=== PATIENT | male | born 1955 | race American Indian/Alaskan Native ===

== ENCOUNTER 2021-09-01 16:25 | Inpatient (IN) | payer MEDICARE ==
--- NOTE | 2021-09-01 16:58 | Emergency Department Report ---
HPI - General Chief Complaint: Altered Mental Status Time Seen by Provider: 09/01/21 16:53 - HPI HPI: Patient brought from [facility] because of altered mental status for approximately the last 3 hours. The patient cannot provide any history because he is afflicted with dementia. EMS found the patient slightly hypertensive at 180/100. ED Past Medical Hx - Past Medical History Hx Hypertension: Yes Hx Diabetes: Yes Hx Renal Disease: Yes (Unsure when he had his last hemodialysis) Additional medical history: Dementia hypercholesterolemia - Family History Family history: other (Noncontributory, unable to obtain) ED Review of Systems ROS: Stated complaint: AMS Other details as noted in HPI Comment: Unobtainable due to pts medical conditions (Dementia) Physical Exam - Physical Exam Vital Signs: Vital Signs 09/01/21 16:43 Temperature 98.7 F Pulse Rate 58 L Respiratory 18 Rate Blood Pressure 180/109 [Left] O2 Sat by Pulse 98 Oximetry Physical Exam: Physical Exam: Constitutional: The patient is oriented only to person. No acute distress. No diaphoresis. HENT: Normocephalic. Pupils equal and reactive. No throat edema or erythema. Neck: No neck rigidity or tenderness. Cardiovascular: Heart sounds: No murmur. Normal rate and regular rhythm. Pulses: Intact distal pulses. Lungs: No wheezing or rales. Chest wall: No tenderness. Abdominal: No distension. No mass/pulsatile mass. No abdominal tenderness, guarding nor rebound. Musculoskeletal: Normal range of motion. No edema, No calf TTP. Skin: Warm and dry. Neurological: Alert and oriented only to person. Psychiatric: Mood and affect normal. He seems cognitively slow. He follows commands but does not respond to questions appropriately. ED Course Vital Signs 09/01/21 16:43 Temperature 98.7 F Pulse Rate 58 L Respiratory 18 Rate Blood Pressure 180/109 [Left] O2 Sat by Pulse 98 Oximetry - Reevaluation(s) Reevaluation #1: 09/01/21 18:49 EKG done at 1746 shows a rate of 51, bradycardia. The rhythm is sinus bradycardia. Prolonged. Interval with first-degree AV block. There are nonspecific repolarization abnormality diffusely in all leads. There is minimal ST segment elevation in the inferior leads not meeting STEMI criteria. The patient's creatinine is very elevated consistent with his ESRD. His troponin is elevated also at 0.1. The rest of his chemistries were within normal limits and his CT of the brain and chest x-ray are also normal. We will be admitting for altered mental status. Reevaluation #2: 09/01/21 20:08 The patient does not produce urine so cannot obtain a urine. His chest x-ray and CT of the brain were unremarkable. His creatinine was elevated at 11 consistent with his ESRD. His troponin was 0.14 consistent with renal accumulation but we do not have old values to compare with. We will admit the patient for altered mental status work-up. ED Medical Decision Making - Lab Data Result diagrams: 09/01/21 17:31 09/01/21 17:31 Critical care attestation.: If time is entered above; I have spent that time in minutes in the direct care of this critically ill patient, excluding procedure time. ED Disposition Clinical Impression: Altered mental status Disposition: 02 [facility] Is pt being admited?: Yes Does the pt Need Aspirin: No Condition: Stable Referrals: PRIMARY CARE [Primary Care Provider] - 3-5 Days
--- NOTE | 2021-09-01 17:36 | Cat Scan Report ---
CT HEAD WITHOUT CONTRAST INDICATION / CLINICAL INFORMATION: AMS. TECHNIQUE: All CT scans at this location are performed using CT dose reduction for ALARA by means of automated e xposure control. COMPARISON: None available. FINDINGS: HEMORRHAGE: No evidence of intracranial hemorrhage or extra-axial fluid collection. EXTRA-AXIAL SPACES: Cortical sulci and sylvian fissures are enlarged reflecting a degree of parenchym al volume loss which is greater than expected for the patient's age of 65 years. Basilar cisterns hav e an unremarkable appearance. VENTRICULAR SYSTEM: The third and lateral ventricles are enlarged reflecting a degree of parenchymal volume loss which is substantially greater than expected for age 65 years. CEREBRAL PARENCHYMA: Periv entricular and deep white matter lucency is observed. This is probably secondary to microvascular isc hemic change. There is no indication of recent infarction. Remote small deep infarctions are identifi ed in a bilateral gangliocapsular distribution. MIDLINE SHIFT OR HERNIATION: There is no mass effect. CEREBELLUM / BRAINSTEM: Brainstem has an unremarkable appearance. Age related cerebellar atrophy is n oted. MIDLINE STRUCTURES:Pituitary gland has an unremarkable appearance. No abnormalities are seen in the p ineal region. INTRACRANIAL VESSELS:Calcified atherosclerotic plaque is present along the course of the cavernous se gments of both internal carotid arteries. Similar findings are seen at the distal vertebral arteries. CRANIOCERVICAL JUNCTION:No significant abnormality. ORBITS: visualized portions of the orbits have an unremarkable appearance. SOFT TISSUES of HEAD: No significant abnormality. CALVARIUM: Evaluation of bone windows reveals no abnormalities. PARANASAL SINUSES / MASTOID AIR CELLS: Paranasal sinuses are free from inflammatory mucosal disease. Mastoid air cells are normally pneumatized. ADDITIONAL FINDINGS: None. IMPRESSION: 1. Moderate central greater than cortical parenchymal atrophy greater than expected for age 65 years. 2. Moderate microvascular ischemic change and multifocal bilateral gangliocapsular remote small deep infarctions. 3. No acute intracranial abnormality. Signer Name: Jose Angel Ross MD Signed: 09/01/2021 5:32 PM Workstation Name: [id number]
--- NOTE | 2021-09-01 17:48 | XRay Report ---
CHEST 1 VIEW 09/01/2021 5:28 PM INDICATION / CLINICAL INFORMATION: Chest Pain. COMPARISON: None available. FINDINGS: SUPPORT DEVICES: None. HEART / MEDIASTINUM: There is mild generalized cardiomegaly. Pulmonary vasculature is probably normal for technique. The aorta is normal in caliber. LUNGS / PLEURA: No significant pulmonary or pleural abnormality. No pneumothorax. ADDITIONAL FINDINGS: No significant additional findings. IMPRESSION: No acute findings. Signer Name: David Mejia MD Signed: 09/01/2021 5:43 PM Workstation Name: [email or web address]
[2021-09-01 18:00] LABS: Basophils # (Auto) 0.1 K/mm3 (0.0-0.1); Basophils % (Auto) 0.6 % (0.0-1.8); Eosinophils # (Auto) 0.1 K/mm3 (0.0-0.4); Eosinophils % (Auto) 1.1 % (0.0-4.3); Hematocrit 31.1 % (35.5-45.6); Hemoglobin 10.4 gm/dl (11.8-15.2); Lymphocytes # (Auto) 1.4 K/mm3 (1.2-5.4); Lymphocytes % (Auto) 16.8 % (13.4-35.0); Mean Corpuscular HGB Conc 33 % (32-34); Mean Corpuscular Volume 85 fl (84-94); Monocytes # (Auto) 0.7 K/mm3 (0.0-0.8); Monocytes % (Auto) 8.2 % (0.0-7.3); Platelet Count 132 K/mm3 (140-440); Red Blood Count 3.67 M/mm3 (3.65-5.03); Red Cell Distribution Width 16.3 % (13.2-15.2)
[2021-09-01 18:19] LABS: Albumin 4.2 g/dL (3.9-5); Calcium 10.5 mg/dL (8.4-10.2)
[2021-09-01 19:55] LABS: Chol/HDL Ratio 1.91 %
--- NOTE | 2021-09-01 20:08 | History and Physical Report ---
History of Present Illness Chief complaint: He is confused and does not look right History of present illness: 65 [facility] Resident with Vascular Dementia, Cerebral Atherosclerosis, ESRD on HD, HTN, DM, Obesity, HLD presents to ED for evaluation. Patient has diminished cognition and is on a provide history. Patient history taken from EMS staff, ED staff, as well as [facility] staff. As per staff the patient was found to have increased confusion and "not acting like himself". EMS was notified and upon arrival the patient was found to be in distress and subsequently transported to [facility] for further care and evaluation of the aforementioned symptoms. The patient was seen and ev aluated in the emergency department. All lab and imaging studies reviewed. Patient found to have clinical symptoms consistent with CHF decompensation, end- stage renal disease, fluid overload, as well as type II NSTEMI. Patient admitted to [facility] and initiated on CHF protocol. Cardiology team consulted in ED. Nephrology team consulted in ED for urgent dialysis. No reports of fever, chills, chest pain, hypertension, productive cough, skin rash, recent contact, known exposure to COVID-19. No prior admission for review. No medication listed at time of admission for reconciliation. Advanced care planning conducted in ED. Past History Past Medical History: diabetes, ESRD, hypertension, other (See HPI) Past Surgical History: Other (Dialysis access) Social history: single. denies: smoking, alcohol abuse, prescription drug abuse Family history: diabetes, hypertension Medications and Allergies Allergies Allergy/AdvReac Type Severity Reaction Status Date / Time No Known Allergies Allergy Unverified 09/01/21 16:53 Review of Systems ROS unobtainable: due to mental status Exam - Constitutional Vitals: Temp Pulse Resp BP Pulse Ox 98.7 F 58 L 18 180/109 99 09/01/21 16:43 09/01/21 16:43 09/01/21 16:43 09/01/21 16:43 09/01/21 17:54 General appearance: Present: mild distress, obese - EENT Eyes: Present: PERRL ENT: hearing intact, clear oral mucosa - Neck Neck: Present: supple, masses or JVD - Respiratory Respiratory effort: labored Respiratory: bilateral: diminished, rhonchi - Cardiovascular Heart Sounds: Present: S1 & S2. Absent: rub, click - Extremities Extremity abnormal: edema Peripheral Pulses: within normal limits - Abdominal General gastrointestinal: Present: soft, non-tender, non-distended, normal bowel sounds Male genitourinary: Present: normal - Integumentary Integumentary: Present: clear, warm, dry - Musculoskeletal Musculoskeletal: generalized weakness - Psychiatric Psychiatric: no appropriate mood/affect, no intact judgment & insight, no memory intact - Neurologic Neurologic: CNII-XII intact (Hospitalist) HEART Score - HEART Score Troponin: Troponin T 0.140 ng/mL (0.00-0.029) H* 09/01/21 17:31 Results - Labs CBC & Chem 7: 09/01/21 17:31 09/01/21 17:31 Labs: Abnormal lab results 09/01/21 09/01/21 Range/Units 17:31 17:31 Hgb 10.4 L (11.8-15.2) gm/dl Hct 31.1 L (35.5-45.6) % RDW 16.3 H (13.2-15.2) % Plt Count 132 L (140-440) K/mm3 Sanders % (Auto) 8.2 H (0.0-7.3) % Seg Neutrophils % 73.3 H (40.0-70.0) % BUN 45 H (9-20) mg/dL Creatinine 11.1 H (0.8-1.3) mg/dL Glucose 116 H (75-100) mg/dL Calcium 10.5 H (8.4-10.2) mg/dL Troponin T 0.140 H* (0.00-0.029) ng/mL NT-Pro-B Natriuret Pep 6719 H (0-900) pg/mL LDL Cholesterol Direct 40 L (50-130) mg/dL Assessment and Plan - Patient Problems (1) CHF (congestive heart failure) Current Visit: Yes Status: Acute Qualifiers: Heart failure chronicity: acute on chronic Plan to address problem: CHF protocol: Strict I/O, monitor urine output every shift, daily weight, a fterload reduction, blood pressure control, supplemental oxygen, pulse oximetry, diuretic therapy, echocardiogram ordered and pending at time of admission, cardiology team consulted, thyroid panel, magnesium level.. (2) End stage renal disease Current Visit: Yes Status: Acute Plan to address problem: Strict I/O, monitor urine output every shift, avoid nephrotoxic agents, dialysis as per renal team. (3) Fluid overload Current Visit: Yes Status: Acute Qualifiers: Hypervolemia type: unspecified Qualified Code(s): E87.70 - Fluid overload, unspecified Plan to address problem: Dialysis as per renal team, monitor urine output every shift, monitor fluid balance. (4) Vascular dementia Current Visit: Yes Status: Acute Qualifiers: Dementia behavioral disturbance: without behavioral disturbance Qualified Code(s): F01.50 - Vascular dementia without behavioral disturbance Plan to address problem: Verbal prompting, verbal redirection, benzodiazepine therapy as clinically indicated. (5) Cerebral atherosclerosis Current Visit: Yes Status: Acute Plan to address problem: Risk factor reduction, supportive care. Antiplatelet therapy as clinically indicated. (6) Obesity hypoventilation syndrome Current Visit: Yes Status: Acute Plan to address problem: Balanced diet, increase physical activity discharge, outpatient pulmonary follow-up for sleep study. (7) Diabetes mellitus Current Visit: Yes Status: Acute Plan to address problem: Consistent carbohydrate diet, Accu-Chek, hypoglycemia protocol, insulin pr otocol. (8) Metabolic syndrome Current Visit: Yes Status: Acute Plan to address problem: Risk factor reduction, supportive care, (9) Hyperlipidemia Current Visit: Yes Status: Acute Qualifiers: Hyperlipidemia type: mixed hyperlipidemia Qualified Code(s): E78.2 - Mixed hyperlipidemia Plan to address problem: Statin therapy as clinically indicated (10) DVT prophylaxis Current Visit: Yes Status: Acute Plan to address problem: SCD to bilateral lower extremities while in bed, prophylactic anticoagulation (11) Advance care planning Current Visit: Yes Status: Acute Plan to address problem: Disease education conducted, care plan discussed, diagnoses discussed, prognosis discussed, patient is full code. +30 minutes.
[2021-09-01] MEDS ORDERED: ACETAMINOPHEN 325 MG TAB PO PRN (20:38)
[2021-09-01] MEDS ORDERED: ALBUTEROL 2.5 MG/3 ML NEBU IH PRN (20:38)
[2021-09-01] MEDS ORDERED: HYDROmorphone 1 MG/1 ML INJ IV PRN (20:38)
[2021-09-01] MEDS ORDERED: oxyCODONE /ACETAMINOPHEN 5-325MG TAB PO PRN (20:38)
[2021-09-01] MEDS ORDERED: SODIUM CHLORIDE 0.9% 100 ML IV PRN (21:08)
--- NOTE | 2021-09-01 21:20 | Event Note ---
Date: 09/01/[address] Singer re: management of ESRD. Patient w/ fluid overload and requires HD tonight. STAT HD orders entered. Attempted to reach HD RN jury consultant - no answer. Notified household appliance installer, Sophie, who will notify HD RN.
[2021-09-01 21:44] LABS: Free T4 (Free Thyroxine) 1.41 ng/dL (0.76-1.46)
[2021-09-02 01:03] LABS: Hepatitis B Surface Antigen Non-Reactive (Negative); Hepatitis C Virus Antibody Non-Reactive (NonReactive)
[2021-09-02] MEDS: HEPARIN 5,000 UNIT/1 ML VIAL SUB-Q SCH ×3 (02:56→22:41)
[2021-09-02 03:39] LABS: Bilirubin,Urine NEG (Negative); Blood,Urine SM (Negative); Color,Urine Straw (Yellow); Urobilinogen,Urine < 2.0 mg/dL (<2.0)
[2021-09-02 05:45] LABS: Calcium 9.4 mg/dL (8.4-10.2)
[2021-09-02] MEDS: FUROSEMIDE 20 MG/2 ML INJ IV SCH ×2 (06:27→18:06)
--- NOTE | 2021-09-02 09:53 | Consultation ---
History of Present Illness - Reason for Consult Consult date: 09/02/21 end stage renal disease - History of Present Illness History obtained from medical records. Mr. Mi is a 65yo w/ ESRD, hypertension, DM who presented to the ED from SNF with change in mental status. History taken from EMS staff, ED staff, as well as [facility] facility staff. As per staff the patient was found to have increased confusion and "not acting like himself". EMS was notified and upon arrival the patient was found to be in distress and subsequently transported to [facility] for further care and evaluation. In the ED, patient was noted to be in fluid overload. He was admitted to [facility] and initiated on CHF protocol. Cardiology team consulted in ED. Nephrology team consulted for urgent dialysis. He is s/p dialysis overnight. Past History Past Medical History: diabetes, ESRD, hypertension, other (See HPI) Past Surgical History: Other (Dialysis access) Social history: single. denies: smoking, alcohol abuse, prescription drug abuse Family history: diabetes, hypertension Medications and Allergies Allergies Allergy/AdvReac Type Severity Reaction Status Date / Time lisinopril Allergy Unknown Verified 09/02/21 08:06 Home Medications Medication Instructions Recorded Confirmed Last Taken Type Acetaminophen [Aphen] 325 mg PO PRN PRN 09/03/21 09/03/21 Unknown History Amlodipine Besylate 10 mg PO DAILY 09/03/21 09/03/21 08/31/21 History Aspirin [Yolo Aspirin EC] 81 mg PO DAILY 09/03/21 09/03/21 08/31/21 History Calcium Acetate 667 mg PO TID 09/03/21 09/03/21 08/31/21 History Cholecalciferol (Vitamin D3) 5,000 units PO QWEEK 09/03/21 09/03/21 Unknown History Cinacalcet HCl [Sensipar] 60 mg PO DAILY 09/03/21 09/03/21 08/31/21 History Famotidine [Pepcid] 20 mg PO BID 09/03/21 09/03/21 08/31/21 History Finasteride [Proscar] 5 mg PO QDAY 09/03/21 09/03/21 08/31/21 History Finasteride [Proscar] 5 mg PO QDAY 09/03/21 09/03/21 08/31/21 History Hydralazine HCl 100 mg PO TID 09/03/21 09/03/21 08/31/21 History Insulin Aspart (Nf) [Novolog 100 unit SQ TID 09/03/21 09/03/21 Unknown History Flexpen] Isosorbide Mononitrate [Isosorbide 60 mg PO DAILY 09/03/21 09/03/21 08/31/21 History Mononitrate ER] Latanoprost 0.005% [Xalatan 0.005%] 1 drop OP QPM 09/03/21 09/03/21 08/31/21 History Renal Vitamin Tablet 1 tab PO DAILY 09/03/21 09/03/21 Unknown History Sevelamer Carbonate [Renvela] 2.4 gm PO TIDWM 09/03/21 09/03/21 08/31/21 History Simvastatin 20 mg PO HS 09/03/21 09/03/21 08/31/21 History Tamsulosin [Flomax] 0.4 mg PO QDAY 09/03/21 09/03/21 08/31/21 History Torsemide [Demadex] 100 mg PO QDAY 09/03/21 09/03/21 08/31/21 History allopurinoL [Zyloprim] 100 mg PO Q48HR 09/03/21 09/03/21 08/31/21 History Active Meds: Active Medications Acetaminophen (Acetaminophen 325 Mg Tab) 650 mg PO Q6H PRN PRN Reason: Pain MILD(1-3)/Fever >100.5/VEGAS Albuterol (Albuterol 2.5 Mg/3 Ml Nebu) 2.5 mg IH Q3HRT PRN PRN Reason: Shortness Of Breath Furosemide (Furosemide 20 Mg/2 Ml Inj) 20 mg IV BID@0600,1800 [facility] Last Admin: 09/02/21 06:27 Dose: 20 mg Heparin Sodium (Porcine) (Heparin 5,000 Unit/1 Ml Vial) 5,000 unit SUB-Q Q12HR [facility] Last Admin: 09/02/21 02:56 Dose: 5,000 unit Hydromorphone HCl (Hydromorphone 1 Mg/1 Ml Inj) 0.5 mg IV Q23H PRN PRN Reason: Pain , Severe (7-10) Sodium Chloride (Nacl 0.9%) 100 mls @ 999 mls/hr IV GHAZAL PRN PRN Reason: Hypotension Oxycodone/Acetaminophen (Oxycodone /Acetaminophen 5-325mg Tab) 1 tab PO Q16H PRN PRN Reason: Pain, Moderate (4-6) Sodium Chloride (Sodium Chloride 0.9% 10 Ml Flush Syringe) 10 ml IV BID [facility] Last Admin: 09/02/21 02:56 Dose: 10 ml Sodium Chloride (Sodium Chloride 0.9% 10 Ml Flush Syringe) 10 ml IV PRN PRN PRN Reason: LINE FLUSH Review of Systems ROS unobtainable: due to mental status Exam - Vital Signs Vital signs: Vital Signs Temp Pulse Resp BP Pulse Ox 98.7 F 58 L 18 180/109 98 09/01/21 16:43 09/01/21 16:43 09/01/21 16:43 09/01/21 16:43 09/01/21 16:43 - General Appearance General appearance: well-developed, well-nourished Respiratory: Decreased Breath Sounds Heart: regular, S1S2 Gastrointestinal: Present: normal. Absent: tenderness, distended Integumentary: warm and dry Psychiatric: cooperative Results - Lab Results 09/03/21 05:09 09/03/21 05:09 Most recent lab results Calcium 9.4 mg/dL (8.4-10.2) 09/02/21 04:33 Magnesium 2.20 mg/dL (1.7-2.3) 09/01/21 20:48 Assessment and Plan Impression: * End stage renal disease * Acute encephalopathy * Bradycardia * Congestive heart failure * Hypertension * Anemia secondary to ESRD * Secondary hyperparathyroidism Plan: * Patient is s/p dialysis overnight * No acute need for HD today * Will plan for HD tomorrow - continue MWF dialysis * UF as tolerated * Cardiology and Neuro consultation pending * Epogen TIW prn * Renal/HD diet
--- NOTE | 2021-09-02 11:44 | Consultation ---
History of Present Illness Consult date: 09/02/21 Reason for Consult: Change in mentation,ESRD on Hemodialysis History of present illness: He is confused History of present illness: 65 [facility] Res[facility] with Vascular Dementia, Cerebral Atherosclerosis, ESRD on HD, HTN, DM, Obesity, HLD presents to ED for evaluation. Patient has diminished cognition and is on a provide history. Patient history taken from EMS staff, ED staff, as well as residential facility staff. As per staff the patient was found to have increased confusion and "not acting like himself". EMS was notified and upon arrival the patient was found to be in distress and subsequently transported to [facility] for further care and evaluation of the aforementioned symptoms. The patient was seen and evaluated in the emergency department. All lab and imaging studies reviewed. Patient found to have clinical symptoms consistent with CHF decompensation, end-stage renal disease, fluid overload, as well as type II NSTEMI. Patient admitted to [facility] and initiated on CHF protocol. Cardiology team consulted in ED. Nephrology team consulted in ED for urgent dialysis. No reports of fever, chills, chest pain, hypertension, productive cough, skin rash, recent contact, known exposure to COVID-19. No prior admission for review. No medication listed at time of admission for reconciliation. Advanced care planning conducted in ED. neurology consulted for evaluation of confusion Ct brain is remarkable for diffuse atrophy, and BG lacunar infarct bilateral TSH#0,095 Troponin#0.140 LDL#40 Past History Past Medical History: diabetes, ESRD, hypertension, other (See HPI) Past Surgical History: Other (Dialysis access) Social history: single. denies: smoking, alcohol abuse, prescription drug abuse Family history: diabetes, hypertension Medications and Allergies Allergies Allergy/AdvReac Type Severity Reaction Status Date / Time No Known Allergies Allergy Unverified 09/01/21 16:53 Review of Systems ROS unobtainable: due to mental status Past History Past Medical History: diabetes, ESRD, hypertension, other (See HPI) Past Surgical History: Other (Dialysis access) Social history: single. denies: smoking, alcohol abuse, prescription drug abuse Family history: diabetes, hypertension Medications and Allergies Allergies Allergy/AdvReac Type Severity Reaction Status Date / Time lisinopril Allergy Unknown Verified 09/02/21 08:06 Active Meds: Active Medications Acetaminophen (Acetaminophen 325 Mg Tab) 650 mg PO Q6H PRN PRN Reason: Pain MILD(1-3)/Fever >100.5/VEGAS Albuterol (Albuterol 2.5 Mg/3 Ml Nebu) 2.5 mg IH Q3HRT PRN PRN Reason: Shortness Of Breath Furosemide (Furosemide 20 Mg/2 Ml Inj) 20 mg IV BID@0600,1800 [facility] Last Admin: 09/02/21 06:27 Dose: 20 mg Heparin Sodium (Porcine) (Heparin 5,000 Unit/1 Ml Vial) 5,000 unit SUB-Q Q12HR [facility] Last Admin: 09/02/21 10:30 Dose: 5,000 unit Hydromorphone HCl (Hydromorphone 1 Mg/1 Ml Inj) 0.5 mg IV Q23H PRN PRN Reason: Pain , Severe (7-10) Sodium Chloride (Nacl 0.9%) 100 mls @ 999 mls/hr IV GHAZAL PRN PRN Reason: Hypotension Oxycodone/Acetaminophen (Oxycodone /Acetaminophen 5-325mg Tab) 1 tab PO Q16H PRN PRN Reason: Pain, Moderate (4-6) Sodium Chloride (Sodium Chloride 0.9% 10 Ml Flush Syringe) 10 ml IV BID [facility] Last Admin: 09/02/21 10:31 Dose: 10 ml Sodium Chloride (Sodium Chloride 0.9% 10 Ml Flush Syringe) 10 ml IV PRN PRN PRN Reason: LINE FLUSH Physical Examination - Vital Signs Vital Signs: Vital Signs Temp Pulse Resp BP Pulse Ox 98.7 F 58 L 18 180/109 98 09/01/21 16:43 09/01/21 16:43 09/01/21 16:43 09/01/21 16:43 09/01/21 16:43 - Constitutional General appearance: comfortable - EENT EENT: Present: PERRL, mucous membranes moist - Respiratory Respiratory: Present: chest non-tender, lungs clear, rhonchi - Cardiovascular Cardiovascular: Present: regular rate, normal S1, normal S2 Extremities: Present: no clubbing, cyanosis, non-pitting edema - Gastrointestinal Gastrointestinal: Present: normoactive bowel sounds - Integumentary Integumentary: Present: normal - Neurologic Cranial nerve examination: PERRL, EOMI, other (lazy 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 ,,not see objects ,unable to count fingers) Results - Laboratory Findings CBC and BMP: 09/01/21 17:31 09/02/21 04:33 Abnormal Lab Findings: Abnormal Labs 09/01/21 09/01/21 09/01/21 17:31 17:31 20:48 Hgb 10.4 L Hct 31.1 L RDW 16.3 H Plt Count 132 L Hendry % (Auto) 8.2 H Seg Neutrophils % 73.3 H BUN 45 H Creatinine 11.1 H Glucose 116 H Calcium 10.5 H Troponin T 0.140 H* NT-Pro-B Natriuret Pep 6719 H LDL Cholesterol Direct 40 L TSH 0.095 L Urine pH 09/02/21 09/02/21 03:12 04:33 Hgb Hct RDW Plt Count Hendry % (Auto) Seg Neutrophils % BUN 21 H Creatinine 6.8 H Glucose Calcium Troponin T NT-Pro-B Natriuret Pep LDL Cholesterol Direct TSH Urine pH 9.0 H Assessment and Plan Assessment and Plan - Patient Problems #Confusion/ dementia -possible change in mentatl status as per record -pt. today is alert interactive -he is with significant underlying dementia -CT brain is remarkable for advanced atrophy, and bilateral BG infarct - findings is suggestive of multiinfarct dementia -? legally blind -Maintain ASA and Lipitor # slight left side weakness -possibly remote -Consider MRI Brain if possible -US acrotid -Echo -A1C,LDL -maintain ASA and Lipitor # CHF (congestive heart failure) -CHF protocol: Strict I/O, monitor urine output every shift, daily weight, afterload reduction, blood pressure control, supplemental oxygen, pulse oximetry, diuretic therapy, echocardiogram ordered and pending at time of admission, cardiology team consulted, thyroid panel, magnesium level.. # End stage renal disease -Strict I/O, monitor urine output every shift, avoid nephrotoxic agents, dialysis as per renal team. # Fluid overload -Dialysis as per renal team, monitor urine output every shift, monitor fluid balance. # Obesity hypoventilation syndrome -Balanced diet, increase physical activity discharge, outpatient pulmonary follow-up for sleep study. # Diabetes mellitus -Consistent carbohydrate diet, Accu-Chek, hypoglycemia protocol, insulin protocol. # Hyperlipidemia -Statin therapy as clinically indicated -LDL#40 # DVT prophylaxis -SCD to bilateral lower extremities while in bed, prophylactic anticoagulation # Advance care planning - patient is full code.
--- NOTE | 2021-09-02 12:20 | Consultation ---
History of Present Illness Consult date: 09/02/21 Requesting physician: COSME NORTON Consult reason: congestive heart failure History of present illness: Chief complaint: Altered mental status Mr. Mi is a 65-year-old -[place] male who was admitted from the emergency room overnight with altered mental status. [facility] is a [facility] resident and according to staff he was brought via EMS for 3 hours of AMS. Patient has significant past medical history of dementia, end-stage renal disease on dialysis, hypertension, diabetes, and hyperlipidemia. HPI obtained from review of records, as patient is unable to provide information at this time. Upon arrival to the emergency room, he was noted to be hypertensive at 180/100. Subsequent work-up found the patient to be bradycardic, with elevated BNP and troponin of 0.140. CT head revealed no acute intracranial abnormality. Chest x-ray revealed mild generalized cardiomegaly with no significant addition al findings. This patient is unknown to our practice. Cardiology consulted for congestive heart failure. Past History Past Medical History: diabetes, ESRD, hypertension, other (See HPI) Past Surgical History: Other (Dialysis access) Social history: single. denies: smoking, alcohol abuse, prescription drug abuse Family history: diabetes, hypertension Medications and Allergies Allergies Allergy/AdvReac Type Severity Reaction Status Date / Time lisinopril Allergy Unknown Verified 09/02/21 08:06 Active Meds: Active Medications Acetaminophen (Acetaminophen 325 Mg Tab) 650 mg PO Q6H PRN PRN Reason: Pain MILD(1-3)/Fever >100.5/VEGAS Albuterol (Albuterol 2.5 Mg/3 Ml Nebu) 2.5 mg IH Q3HRT PRN PRN Reason: Shortness Of Breath Furosemide (Furosemide 20 Mg/2 Ml Inj) 20 mg IV BID@0600,1800 [facility] Last Admin: 09/02/21 06:27 Dose: 20 mg Heparin Sodium (Porcine) (Heparin 5,000 Unit/1 Ml Vial) 5,000 unit SUB-Q Q12HR [facility] Last Admin: 09/02/21 10:30 Dose: 5,000 unit Hydromorphone HCl (Hydromorphone 1 Mg/1 Ml Inj) 0.5 mg IV Q23H PRN PRN Reason: Pain , Severe (7-10) Sodium Chloride (Nacl 0.9%) 100 mls @ 999 mls/hr IV GHAZAL PRN PRN Reason: Hypotension Oxycodone/Acetaminophen (Oxycodone /Acetaminophen 5-325mg Tab) 1 tab PO Q16H PRN PRN Reason: Pain, Moderate (4-6) Sodium Chloride (Sodium Chloride 0.9% 10 Ml Flush Syringe) 10 ml IV BID PAULINA Last Admin: 09/02/21 10:31 Dose: 10 ml Sodium Chloride (Sodium Chloride 0.9% 10 Ml Flush Syringe) 10 ml IV PRN PRN PRN Reason: LINE FLUSH Review of Systems ROS unobtainable: due to mental status Physical Examination Vital Signs Temp Pulse Resp BP Pulse Ox 98.7 F 58 L 18 180/109 98 09/01/21 16:43 09/01/21 16:43 09/01/21 16:43 09/01/21 16:43 09/01/21 16:43 General appearance: no acute distress HEENT: Positive: Normocephaly Neck: Positive: trachea midline Cardiac: Positive: S1/S2, Bradycardia Lungs: Positive: clear to auscultation Neuro: Positive: Other (A&O x 1; disoriented. arousable. ) Abdomen: Positive: Soft, Active Bowel Sounds Male genitourinary: Positive: deferred Skin: Negative: Rash Extremities: Present: upper extr. pulses (2+), lower extr. pulses (1+). Absent: edema Results 09/01/21 17:31 09/02/21 04:33 Cardiac Enzymes 09/01/21 Range/Units 17:31 AST 14 (5-40) units/L Lipids 09/01/21 Range/Units 17:31 Triglycerides 82 (2-149) mg/dL Cholesterol 107 (50-199) mg/dL HDL Cholesterol 56 (40-59) mg/dL Cholesterol/HDL Ratio 1.91 % CBC 09/01/21 Range/Units 17:31 WBC 8.4 (4.5-11.0) K/mm3 RBC 3.67 (3.65-5.03) M/mm3 Hgb 10.4 L (11.8-15.2) gm/dl Hct 31.1 L (35.5-45.6) % Plt Count 132 L (140-440) K/mm3 Lymph # (Auto) 1.4 (1.2-5.4) K/mm3 [place] # (Auto) 0.7 (0.0-0.8) K/mm3 Eos # (Auto) 0.1 (0.0-0.4) K/mm3 Baso # (Auto) 0.1 (0.0-0.1) K/mm3 Comprehensive Metabolic Panel 09/01/21 09/02/21 Range/Units 17:31 04:33 Sodium 143 141 (137-145) mmol/L Potassium 4.6 4.0 (3.6-5.0) mmol/L Chloride 100.8 100.2 (98-107) mmol/L Carbon Dioxide 24 28 (22-30) mmol/L BUN 45 H 21 H (9-20) mg/dL Creatinine 11.1 H 6.8 H (0.8-1.3) mg/dL Glucose 116 H 84 (75-100) mg/dL Calcium 10.5 H 9.4 (8.4-10.2) mg/dL AST 14 (5-40) units/L ALT 12 (7-56) units/L Alkaline Phosphatase 70 (35-129) units/L Total Protein 7.7 (6.3-8.2) g/dL Albumin 4.2 (3.9-5) g/dL - Imaging and Cardiology Echo: pending EKG: pending EKG interpretations - Telemetry EKG Rhythm: 3rd Degree HB Assessment and Plan Assessment Altered mental status-neurology following End-stage renal disease(on HD) Bradycardia- EP consult placed NSTEMI Elevated BNP History of heart failure (unknown EF) Cardiographics EKG- Sinus Diego Echocardiogram-pending Recommendations/plan: -Telemetry revealed sinus bradycardia 40s to 50s with AV disassociation, possibly complete heart block with escape beats. Patient asymptomatic and hemodynamically stable. Electrolytes are acceptable. Patient is on no AV blocking medications. -EP consult has been placed -Initial troponin slightly elevated at 0.140. Cont to trend troponin x2 -Given patient's current mental status, we will defer ischemic evaluation at this time. -Despite elevated BNP, patient does not show overt signs of acute heart failure. Echocardiogram is pending. -Continue Lasix for now. -No beta-jcarlos due to bradycardia -No RODOLFO/ARB/ARNI in the setting of renal failure & allergy to lisinopril -Volume management per nephrology/HD Thank you for this consultation, we will follow along. Patient seen in conjunction with Dr. Giles who agrees with the assessment and management of this patient. - Patient Problems (1) NSTEMI (non-ST elevated myocardial infarction) Current Visit: Yes Status: Acute (2) Bradycardia Current Visit: Yes Status: Acute (3) Altered mental status Current Visit: Yes Status: Acute (4) Diabetes mellitus Current Visit: Yes Status: Acute (5) End stage renal disease Current Visit: Yes Status: Acute (6) Hyperlipidemia Current Visit: Yes Status: Acute Qualifiers: Hyperlipidemia type: mixed hyperlipidemia Qualified Code(s): E78.2 - Mixed hyperlipidemia (7) Vascular dementia Current Visit: Yes Status: Acute Qualifiers: Dementia behavioral disturbance: without behavioral disturbance Qualified Code(s): F01.50 - Vascular dementia without behavioral disturbance
--- NOTE | 2021-09-02 13:28 | Progress Note ---
Assessment and Plan Assessment and plan: 65 [facility] Res[facility] with Vascular Dementia, Cerebral Atherosclerosis, ESRD on HD, HTN, DM, Obesity, HLD presents to ED for evaluation. Patient has diminished cognition and is on a provide history. Patient history taken from EMS staff, ED staff, as well as halfway facility staff. As per staff the patient was found to have increased confusion and "not acting like himself". EMS was notified and upon arrival the patient was found to be in distress and subsequently transported to [facility] for further care and evaluation of the aforementioned symptoms. The patient was seen and evaluated in the emergency department. All lab and imaging studies reviewed. Patient found to have clinical symptoms consistent with CHF decompensation, end- stage renal disease, fluid overload, as well as type II NSTEMI. Patient admitted to [facility] and initiated on CHF protocol. Cardiology team consulted in ED. Nephrology team consulted in ED for urgent dialysis. No reports of fever, chills, chest pain, hypertension, productive cough, skin rash, recent contact, known exposure to COVID-19. No prior admission for review. No medication listed at time of admission for reconciliation. Advanced care planning conducted in ED. Patient undergoing dialysis today. Still with remarkable confusion continues to repeat his name when asked date of . CT of the brain was unremarkable. Neurology evaluated the patient and documented possible lacunar infarct bilateral. Patient being seen by vacuum tester cans he became bradycardic. EKG- Sinus Diego Echocardiogram-pending Cardiology work up ongoing evaluating for possible complete HB with escape beats. (1) CHF (congestive heart failure) Current Visit: Yes Status: Acute Qualifiers: Heart failure chronicity: acute on chronic Plan to address problem: CHF protocol: Strict I/O, monitor urine output every shift, daily weight, afterload reduction, blood pressure control, supplemental oxygen, pulse oximetry, diuretic therapy, echocardiogram ordered and pending at time of admission, cardiology team consulted, thyroid panel, magnesium level.. -No beta-jcarlos due to bradycardia -No RODOLFO/ARB/ARNI in the setting of renal failure & allergy to lisinopril (2) End stage renal disease Current Visit: Yes Status: Acute Plan to address problem: Strict I/O, monitor urine output every shift, avoid nephrotoxic agents, dialysis as per renal team. (3) Fluid overload Current Visit: Yes Status: Acute Qualifiers: Hypervolemia type: unspecified Qualified Code(s): E87.70 - Fluid overload, unspecified Plan to address problem: Dialysis as per renal team, monitor urine output every shift, monitor fluid balance. (4) Vascular dementia Current Visit: Yes Status: Acute Qualifiers: Dementia behavioral disturbance: without behavioral disturbance Qualified Code(s): F01.50 - Vascular dementia without behavioral disturbance Plan to address problem: Verbal prompting, verbal redirection, benzodiazepine therapy as clinically indicated. (5) Cerebral atherosclerosis Current Visit: Yes Status: Acute Plan to address problem: Risk factor reduction, supportive care. Antiplatelet therapy as clinically indicated. (6) Obesity hypoventilation syndrome Current Visit: Yes Status: Acute Plan to address problem: Balanced diet, increase physical activity discharge, outpatient pulmonary follow-up for sleep study. (7) Diabetes mellitus Current Visit: Yes Status: Acute Plan to address problem: Consistent carbohydrate diet, Accu-Chek, hypoglycemia protocol, insulin protocol. (8) Metabolic syndrome Current Visit: Yes Status: Acute Plan to address problem: Risk factor reduction, supportive care, (9) Bradycardia Current Visit: Yes Status: Acute (10) Hyperlipidemia Current Visit: Yes Status: Acute Qualifiers: Hyperlipidemia type: mixed hyperlipidemia Qualified Code(s): E78.2 - Mixed hyperlipidemia Plan to address problem: Statin therapy as clinically indicated (11) DVT prophylaxis Current Visit: Yes Status: Acute Plan to address problem: SCD to bilateral lower extremities while in bed, prophylactic anticoagulation (12) Advance care planning Current Visit: Yes Status: Acute Plan to address problem: Disease education conducted, care plan discussed, diagnoses discussed, prognosis discussed, patient is full code. +30 minutes. History Interval history: Patient seen and examined, no acute distress, still confused. Hospitalist Physical - Physical exam Narrative exam: VITAL SIGNS: Reviewed. GENERAL: The patient appears normally developed, Vital signs as documented. HEAD: No signs of head trauma. EYES: Pupils are equal. Legally blind EARS: Hearing grossly intact. MOUTH: Oropharynx is normal. NECK: No adenopathy, no JVD. CHEST: Chest with clear breath sounds bilaterally. No wheezes, rales, or rhonchi. CARDIAC: Regular rate and rhythm. S1 and S2, without murmurs, gallops, or rubs. VASCULAR: No Edema. Peripheral pulses normal and equal in all extremities. ABDOMEN: Soft, non tender and non distended. No rebound or guarding, and no masses palpated. Bowel Sounds normal. MUSCULOSKELETAL: Good range of motion of all major joints. Extremities without clubbing, cyanosis or edema. NEUROLOGIC EXAM: Alert and oriented x 3 lazy 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 ,not see objects ,unable to count fingers No focal sensory or strength deficits. Speech normal. Follows some commands. PSYCHIATRIC: Mood normal. SKIN: detail exam as documented in skin assessment - Constitutional Vitals: Temp Pulse Resp BP Pulse Ox 99 F 40 L 24 154/62 100 09/02/21 03:17 09/02/21 12:16 09/02/21 12:16 09/02/21 12:16 09/02/21 12:16 General appearance: Present: no acute distress HEART Score - HEART Score Troponin: Troponin T 0.169 ng/mL (0.00-0.029) H* D 09/02/21 10:11 Results - Labs CBC & Chem 7: 09/01/21 17:31 09/02/21 04:33 Labs: Laboratory Last Values WBC 8.4 K/mm3 (4.5-11.0) 09/01/21 17:31 RBC 3.67 M/mm3 (3.65-5.03) 09/01/21 17:31 Hgb 10.4 gm/dl (11.8-15.2) L 09/01/21 17:31 Hct 31.1 % (35.5-45.6) L 09/01/21 17:31 MCV 85 fl (84-94) 09/01/21 17:31 MCH 28 pg (28-32) 09/01/21 17:31 MCHC 33 % (32-34) 09/01/21 17:31 RDW 16.3 % (13.2-15.2) H 09/01/21 17:31 Plt Count 132 K/mm3 (140-440) L 09/01/21 17:31 Lymph % (Auto) 16.8 % (13.4-35.0) 09/01/21 17:31 [place] % (Auto) 8.2 % (0.0-7.3) H 09/01/21 17:31 Eos % (Auto) 1.1 % (0.0-4.3) 09/01/21 17:31 Baso % (Auto) 0.6 % (0.0-1.8) 09/01/21 17:31 Lymph # (Auto) 1.4 K/mm3 (1.2-5.4) 09/01/21 17:31 [place] # (Auto) 0.7 K/mm3 (0.0-0.8) 09/01/21 17:31 Eos # (Auto) 0.1 K/mm3 (0.0-0.4) 09/01/21 17:31 Baso # (Auto) 0.1 K/mm3 (0.0-0.1) 09/01/21 17:31 Seg Neutrophils % 73.3 % (40.0-70.0) H 09/01/21 17:31 Seg Neutrophils # 6.1 K/mm3 (1.8-7.7) 09/01/21 17:31 Sodium 141 mmol/L (137-145) 09/02/21 04:33 Potassium 4.0 mmol/L (3.6-5.0) 09/02/21 04:33 Chloride 100.2 mmol/L (98-107) 09/02/21 04:33 Carbon Dioxide 28 mmol/L (22-30) 09/02/21 04:33 Anion Gap 17 mmol/L 09/02/21 04:33 BUN 21 mg/dL (9-20) H 09/02/21 04:33 Creatinine 6.8 mg/dL (0.8-1.3) H 09/02/21 04:33 Estimated GFR 10 ml/min 09/02/21 04:33 BUN/Creatinine Ratio 3 % 09/02/21 04:33 Glucose 84 mg/dL (75-100) 09/02/21 04:33 Calcium 9.4 mg/dL (8.4-10.2) 09/02/21 04:33 Magnesium 2.20 mg/dL (1.7-2.3) 09/01/21 20:48 Total Bilirubin 0.30 mg/dL (0.1-1.2) 09/01/21 17:31 AST 14 units/L (5-40) 09/01/21 17:31 ALT 12 units/L (7-56) 09/01/21 17:31 Alkaline Phosphatase 70 units/L (35-129) 09/01/21 17:31 Troponin T 0.169 ng/mL (0.00-0.029) H* D 09/02/21 10:11 NT-Pro-B Natriuret Pep 6719 pg/mL (0-900) H 09/01/21 17:31 Total Protein 7.7 g/dL (6.3-8.2) 09/01/21 17:31 Albumin 4.2 g/dL (3.9-5) 09/01/21 17:31 Albumin/Globulin Ratio 1.2 % 09/01/21 17:31 Triglycerides 82 mg/dL (2-149) 09/01/21 17:31 Cholesterol 107 mg/dL (50-199) 09/01/21 17:31 LDL Cholesterol Direct 40 mg/dL (50-130) L 09/01/21 17:31 HDL Cholesterol 56 mg/dL (40-59) 09/01/21 17:31 Cholesterol/HDL Ratio 1.91 % 09/01/21 17:31 TSH 0.095 mlU/mL (0.270-4.200) L 09/01/21 20:48 Free T4 1.41 ng/dL (0.76-1.46) 09/01/21 20:48 Urine Color Straw (Yellow) 09/02/21 03:12 Urine Turbidity Clear (Clear) 09/02/21 03:12 Urine pH 9.0 (5.0-7.0) H 09/02/21 03:12 Ur Specific [place] 1.008 (1.003-1.030) 09/02/21 03:12 Urine Protein 100 mg/dl mg/dL (Negative) 09/02/21 03:12 Urine Glucose (UA) 150 mg/dL (Negative) 09/02/21 03:12 Urine Ketones Neg mg/dL (Negative) 09/02/21 03:12 Urine Blood Sm (Negative) 09/02/21 03:12 Urine Nitrite Neg (Negative) 09/02/21 03:12 Urine Bilirubin Neg (Negative) 09/02/21 03:12 Urine Urobilinogen < 2.0 mg/dL (<2.0) 09/02/21 03:12 Ur Leukocyte Esterase Neg (Negative) 09/02/21 03:12 Urine WBC (Auto) 4.0 /HPF (0.0-6.0) 09/02/21 03:12 Urine RBC (Auto) 2.0 /HPF (0.0-6.0) 09/02/21 03:12 U Epithel Cells (Auto) < 1.0 /HPF (0-13.0) 09/02/21 03:12 Hep Bs Antigen Non-reactive (Negative) 09/02/21 00:09 Hep B Core IgM Ab Non-reactive (NonReactive) 09/02/21 00:09 Hepatitis C Antibody Non-reactive (NonReactive) 09/02/21 00:09 Microbiology: Microbiology 09/01/21 17:31 Peripheral/Venous Blood Culture - Preliminary Culture in Progress 09/01/21 17:31 Peripheral/Venous Blood Culture - Preliminary Culture in Progress [place]/IV: Voiding Method Condom Catheter Active Medications - Current Medications Current Medications: Generic Name Dose Route Start Last Admin Trade Name Freq PRN Reason Stop Dose Admin Acetaminophen 650 mg 09/01/21 20:38 Acetaminophen 325 Mg Tab PO Q6H PRN Pain MILD(1-3)/Fever >100.5/VEGAS Albuterol 2.5 mg 09/01/21 20:38 Albuterol 2.5 Mg/3 Ml Nebu IH Q3HRT PRN Shortness Of Breath Aspirin 81 mg 09/02/21 14:00 Aspirin 81 Mg Tab Chew PO QDAY PAULINA Atorvastatin Calcium 20 mg 09/02/21 22:00 Atorvastatin 20 Mg Tab PO QHS PAULINA Furosemide 20 mg 09/02/21 06:00 09/02/21 06:27 Furosemide 20 Mg/2 Ml Inj IV 20 mg BID@0600,1800 PAULINA Administration Heparin Sodium (Porcine) 5,000 unit 09/01/21 22:00 09/02/21 10:30 Heparin 5,000 Unit/1 Ml Vial SUB-Q 5,000 unit Q12HR PAULINA Administration Hydromorphone HCl 0.5 mg 09/01/21 20:38 Hydromorphone 1 Mg/1 Ml Inj IV Q23H PRN Pain , Severe (7-10) Sodium Chloride 100 mls @ 999 mls/hr 09/01/21 21:08 Nacl 0.9% IV GHAZAL PRN Hypotension Oxycodone/Acetaminophen 1 tab 09/01/21 20:38 Oxycodone /Acetaminophen 5-325mg Tab PO Q16H PRN Pain, Moderate (4-6) Sodium Chloride 10 ml 09/01/21 22:00 09/02/21 10:31 Sodium Chloride 0.9% 10 Ml Flush Syringe IV 10 ml BID PAULINA Administration Sodium Chloride 10 ml 09/01/21 20:38 Sodium Chloride 0.9% 10 Ml Flush Syringe IV PRN PRN LINE FLUSH Nutrition/Malnutrition Assess - Dietary Evaluation Nutrition/Malnutrition Findings: Nutrition Notes Start: 09/02/21 10:40 Freq: Status: Active Protocol: Document 09/02/21 10:40 SANTO (Rec: 09/02/21 11:00 SANTO [email or web address]) Nutrition Notes 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 Current Diet NPO 9since 09/01 20:39). Labs/Tests 09/02: BUN 21, Crea 6.8. Pertinent Medications 09/02: Nutritionally unremarkable. 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 Weight Status Overweight Subjective/Other Information RD consult for risk of malnutrition assessment. Pt currently on NPO. Pt shows no signs of concern for risk of malnutrition at the time, according to Physical Assessment History notes. Pt on Room Air, O2 saturation @ 93%, according to Physical Assessment History notes. Pt lives on SNF. Percent of energy/protein needs met: Pt currently on NPO. Burn Absent Trauma Absent GI Symptoms None Food Allergy No Skin Integrity/Comment Assessment WNL. Current % PO Other Minimum of two criteria No #1 Nutrition Diagnosis No nutrition diagnosis at this time Comments: Will assess Pt's PO intake of meals at F/U. Is patient on ventilator? No Is Patient Ambulatory and/or Out of Bed Yes REE-(Garrett-St. Jeor-ambulatory/OOB) [ 2206.594 NUTR.[id number]] Kcal/Kg value to use for calculation 20 Approximate Energy Requirements Using 1834 kcal/Kg Calculation Used for Recommendations Kcal/kg Additional Notes Protein: >1.2 g/Kg ABW; >110 g /day. Fluids: 1 ml/Kcal, or as per MD. Nutrition Intervention Change Diet Order: When Pertinent, advance to Renal Diet. Follow-Up By: 09/04/21 Additional Comments When pertinent, start monitoring food tolerance, %PO intake of meals, and BM.
--- NOTE | 2021-09-02 15:30 | Vascular Lab Report ---
DUPLEX DOPPLER ULTRASOUND CAROTID, BILATERAL INDICATION / CLINICAL INFORMATION: cva. COMPARISON: None available. FINDINGS: RIGHT CAROTID: There is minimal partially calcified plaque in the carotid bulb - PLAQUE ESTIMATE (%): < 50% - CCA velocity: 78 cm/sec. - ICA peak systolic velocity: 110 cm/sec. - ICA/CCA PSV Ratio: 1.4 Right Vertebral Artery: Antegrade flow. LEFT CAROTID: There is minimal partially calcified plaque in the distal CCA and carotid bulb - PLAQUE ESTIMATE (%): < 50% - CCA velocity: 72 cm/sec. - ICA peak systolic velocity: 76 cm/sec. - ICA/CCA PSV Ratio: 1.1 Left Vertebral Artery: Antegrade flow. IMPRESSION: 1. Right Internal Carotid Artery: Less than 50% diameter stenosis. 2. Left Internal Carotid Artery: Less than 50% diameter stenosis. Velocity criteria are extrapolated from diameter data as defined by the Society of Radiologists in Ul trasound Consensus Conference, Radiology 2003; 229;340-346. NO STENOSIS (NORMAL) - Plaque = none; ICA PSV < 125 cm/sec; ICA/CCA PSV Ratio < 2.0 <50% STENOSIS - Plaque < 50%; ICA PSV < 125 cm/sec; ICA/CCA PSV Ratio < 2.0 50-69% STENOSIS - Plaque > 50%; ICA PSV = 125-230 cm/sec; ICA/CCA PSV Ratio = 2.0-4.0 >70% BUT <100% STENOSIS - Plaque > 50%; ICA PSV > 230 cm/sec; ICA/CCA PSV Ratio > 4.0 NEAR OCCLUSION - Plaque = visible lumen; ICA PSV = high/low/none; ICA/CCA PSV Ratio = variable TOTAL OCCLUSION - Plaque = no lumen; ICA PSV = none; ICA/CCA PSV Ratio = N/A Signer Name: Chico Leon Jr, MD Signed: 09/02/2021 3:22 PM Workstation Name: [email or web address]
--- NOTE | 2021-09-02 17:41 | Event Note ---
Date: 09/02/21 65-year-old male who was admitted for mental status changes here at [facility] was subsequently found to have high-grade AV block/complete heart block with heart rates in the high 30s and 40s. He currently is hemodynamically stable. The patient resides in a [facility] and has a known past medical history of end-stage renal disease/hemodialysis/left upper extremity fistula and hypertension. I spoke with the patient's cousin/Ms. Trupti Alexis who stated that he is "smart as a whip" and has no known history of dementia. She reports that she recently spoke with him last weekend and he was talking normally. She commented how he had told her that he had received a new cell phone. On admission the patient was noted to have a TSH level that was low with a creatinine of 11. His electrolytes were within normal limits. A chest x-ray did not reveal any new infiltrates. Head CT was negative for any acute abnormalities. Neurology is evaluating the patient and he is currently awaiting an MRI of the brain. I spoke with the patient's cousin Ms. Trupti Alexis rosalio stein possible permanent pacemaker implantation. She is not opposed however given his mental status changes are likely not secondary to his bradycardia she is awaiting his neurological work-up. Awaiting MRI/neurology work-up Awaiting echocardiogram Telemetry suggest 2:1 AV block versus complete heart block. Recommend twelve-lead EKG in the morning with rhythm strip. .
[2021-09-02] MEDS: ASPIRIN 81 MG TAB CHEW PO SCH (18:06)
[2021-09-03 05:30] LABS: Basophils % (Auto) 0.6 % (0.0-1.8); Eosinophils # (Auto) 0.1 K/mm3 (0.0-0.4); Eosinophils % (Auto) 1.7 % (0.0-4.3); Hematocrit 32.3 % (35.5-45.6); Hemoglobin 10.7 gm/dl (11.8-15.2); Lymphocytes # (Auto) 2.2 K/mm3 (1.2-5.4); Lymphocytes % (Auto) 31.4 % (13.4-35.0); Mean Corpuscular HGB Conc 33 % (32-34); Mean Corpuscular Volume 84 fl (84-94); Monocytes # (Auto) 0.7 K/mm3 (0.0-0.8); Monocytes % (Auto) 10.7 % (0.0-7.3); Platelet Count 137 K/mm3 (140-440); Red Blood Count 3.84 M/mm3 (3.65-5.03); Red Cell Distribution Width 15.4 % (13.2-15.2)
[2021-09-03] MEDS: FUROSEMIDE 20 MG/2 ML INJ IV SCH ×3 (05:30→20:00)
[2021-09-03 05:40] LABS: INR 0.94 (0.87-1.13)
[2021-09-03 05:41] LABS: Partial Thromboplastin Time 34.1 Sec. (24.2-36.6)
[2021-09-03 05:48] LABS: Calcium 9.9 mg/dL (8.4-10.2)
--- NOTE | 2021-09-03 09:49 | Progress Note ---
Assessment and Plan Impression: * End stage renal disease * Acute encephalopathy * Bradycardia * Congestive heart failure * Hypertension * Anemia secondary to ESRD * Secondary hyperparathyroidism Plan: * HD today * Continue MWF dialysis * UF as tolerated * Cardiology recommendations noted * Neuro work up in progress * Epogen TIW prn * Renal/HD diet Subjective Date of service: 09/03/21 Objective - Vital Signs Vital signs: Vital Signs - 12hr 09/02/21 09/02/21 09/02/21 22:01 22:11 23:01 Temperature Pulse Rate 47 L 43 L 39 L Pulse Rate [ From Monitor] Respiratory 18 21 15 Rate Blood Pressure 133/95 133/95 170/61 O2 Sat by Pulse 100 100 99 Oximetry 09/03/21 09/03/21 09/03/21 00:00 00:01 00:30 Temperature 98.9 F Pulse Rate 45 L 41 L Pulse Rate [ From Monitor] Respiratory 10 L Rate Blood Pressure 170/61 O2 Sat by Pulse 100 Oximetry 09/03/21 09/03/21 09/03/21 01:01 02:01 03:01 Temperature Pulse Rate 35 L 40 L 34 L Pulse Rate [ From Monitor] Respiratory 7 L 20 15 Rate Blood Pressure 180/60 181/72 179/60 O2 Sat by Pulse 96 97 98 Oximetry 09/03/21 09/03/21 09/03/21 04:00 04:01 04:10 Temperature Pulse Rate 34 L 36 L Pulse Rate [ 34 L From Monitor] Respiratory 10 L 10 L Rate Blood Pressure 179/65 O2 Sat by Pulse 96 96 Oximetry 09/03/21 09/03/21 09/03/21 05:01 06:01 06:31 Temperature Pulse Rate 33 L 33 L 34 L Pulse Rate [ From Monitor] Respiratory 11 L 18 23 Rate Blood Pressure 183/64 184/67 184/67 O2 Sat by Pulse 98 100 100 Oximetry 09/03/21 09/03/21 07:01 08:00 Temperature 98.5 F Pulse Rate 36 L Pulse Rate [ From Monitor] Respiratory 13 Rate Blood Pressure 184/67 O2 Sat by Pulse 100 Oximetry - Lab 09/03/21 05:09 09/03/21 05:09 Most recent lab results Calcium 9.9 mg/dL (8.4-10.2) 09/03/21 05:09 Magnesium 2.20 mg/dL (1.7-2.3) 09/01/21 20:48 Medications & Allergies - Medications Allergies/Adverse Reactions: Allergies lisinopril Allergy (Verified 09/02/21 08:06) Unknown Home Medications: Home Medications Medication Instructions Recorded Confirmed Last Taken Type Acetaminophen [Aphen] 325 mg PO PRN PRN 09/03/21 09/03/21 Unknown History Amlodipine Besylate 10 mg PO DAILY 09/03/21 09/03/21 08/31/21 History Aspirin [[place] Aspirin EC] 81 mg PO DAILY 09/03/21 09/03/21 08/31/21 History Calcium Acetate 667 mg PO TID 09/03/21 09/03/21 08/31/21 History Cholecalciferol (Vitamin D3) 5,000 units PO QWEEK 09/03/21 09/03/21 Unknown History Cinacalcet HCl [Sensipar] 60 mg PO DAILY 09/03/21 09/03/21 08/31/21 History Famotidine [Pepcid] 20 mg PO BID 09/03/21 09/03/21 08/31/21 History Finasteride [Proscar] 5 mg PO QDAY 09/03/21 09/03/21 08/31/21 History Finasteride [Proscar] 5 mg PO QDAY 09/03/21 09/03/21 08/31/21 History Hydralazine HCl 100 mg PO TID 09/03/21 09/03/21 08/31/21 History Insulin Aspart (Nf) [Novolog 100 unit SQ TID 09/03/21 09/03/21 Unknown History Flexpen] Isosorbide Mononitrate [Isosorbide 60 mg PO DAILY 09/03/21 09/03/21 08/31/21 History Mononitrate ER] Latanoprost 0.005% [Xalatan 0.005%] 1 drop OP QPM 09/03/21 09/03/21 08/31/21 History Renal Vitamin Tablet 1 tab PO DAILY 09/03/21 09/03/21 Unknown History Sevelamer Carbonate [Renvela] 2.4 gm PO TIDWM 09/03/21 09/03/21 08/31/21 History Simvastatin 20 mg PO HS 09/03/21 09/03/21 08/31/21 History Tamsulosin [Flomax] 0.4 mg PO QDAY 09/03/21 09/03/21 08/31/21 History Torsemide [Demadex] 100 mg PO QDAY 09/03/21 09/03/21 08/31/21 History allopurinoL [Zyloprim] 100 mg PO Q48HR 09/03/21 09/03/21 08/31/21 History Active Medications: Generic Name Dose Route Start Last Admin Trade Name Freq PRN Reason Stop Dose Admin Acetaminophen 650 mg 09/01/21 20:38 Acetaminophen 325 Mg Tab PO Q6H PRN Pain MILD(1-3)/Fever >100.5/VEGAS Albuterol 2.5 mg 09/01/21 20:38 Albuterol 2.5 Mg/3 Ml Nebu IH Q3HRT PRN Shortness Of Breath Aspirin 81 mg 09/02/21 14:00 09/02/21 18:06 Aspirin 81 Mg Tab Chew PO 81 mg QDAY PAULINA Administration Atorvastatin Calcium 20 mg 09/02/21 22:00 09/02/21 22:41 Atorvastatin 20 Mg Tab PO 20 mg QHS PAULINA Administration Finasteride 5 mg 09/03/21 10:00 Finasteride 5 Mg Tab PO QDAY PAULINA Furosemide 20 mg 09/02/21 06:00 09/03/21 05:30 Furosemide 20 Mg/2 Ml Inj IV 20 mg BID@0600,1800 PAULINA Administration Heparin Sodium (Porcine) 5,000 unit 09/01/21 22:00 09/02/21 22:41 Heparin 5,000 Unit/1 Ml Vial SUB-Q 5,000 unit Q12HR PAULINA Administration Hydralazine HCl 100 mg 09/03/21 14:00 Hydralazine 100 Mg Tab PO TID PAULINA Hydromorphone HCl 0.5 mg 09/01/21 20:38 Hydromorphone 1 Mg/1 Ml Inj IV Q23H PRN Pain , Severe (7-10) Sodium Chloride 100 mls @ 999 mls/hr 09/01/21 21:08 Nacl 0.9% IV GHAZAL PRN Hypotension Isosorbide Mononitrate 60 mg 09/03/21 10:00 Isosorbide Mononitrate Er 60 Mg Tab PO DAILY [facility] Latanoprost 1 drops 09/03/21 18:00 Latanoprost 0.005% Ophth Soln 2.5 Ml OU QPM PAULINA Multivit/Ca Carb/B Cmplx/FA/Prenat 1 cap 09/03/21 10:00 Folic Acid/Vit B Comp W-C 1 Mg (Renal Caps) PO QDAY PAULINA Oxycodone/Acetaminophen 1 tab 09/01/21 20:38 Oxycodone /Acetaminophen 5-325mg Tab PO Q16H PRN Pain, Moderate (4-6) Sevelamer Carbonate 2,400 mg 09/03/21 12:00 Sevelamer Carbonate 800 Mg Tab PO TIDWM PAULINA Sodium Chloride 10 ml 09/01/21 22:00 09/02/21 22:42 Sodium Chloride 0.9% 10 Ml Flush Syringe IV 10 ml BID PAULINA Administration Sodium Chloride 10 ml 09/01/21 20:38 Sodium Chloride 0.9% 10 Ml Flush Syringe IV PRN PRN LINE FLUSH Tamsulosin HCl 0.4 mg 09/03/21 10:00 Tamsulosin 0.4 Mg Cap PO QDAY PAULINA
--- NOTE | 2021-09-03 09:53 | XRay Report ---
CHEST 2 VIEWS INDICATION / CLINICAL INFORMATION: PPM. COMPARISON: September 01, 2021 FINDINGS: SUPPORT DEVICES: None. HEART / MEDIASTINUM: Cardiomegaly LUNGS / PLEURA: Increased pulmonary vascular No pneumothorax. ADDITIONAL FINDINGS: No significant additional findings. IMPRESSION: 1. Cardiomegaly with mild increased pulmonary vascularity. No significant change Signer Name: Radu Ingram MD Signed: 09/03/2021 9:48 AM Workstation Name: [id number]
[2021-09-03] MEDS ORDERED: SODIUM CHLORIDE 0.9% 100 ML IV PRN (10:00)
--- NOTE | 2021-09-03 11:17 | Magnetic Resonance Report ---
MRI BRAIN 09/03/2021 INDICATION / CLINICAL INFORMATION: CVA--AMS. TECHNIQUE: Multiplanar, multisequence MR images of the brain were obtained. COMPARISON: CT brain 09/01/2021 FINDINGS: BRAIN / INTRACRANIAL CONTENTS: Unenhanced MR images of the brain demonstrate no evidence of acute abn ormality. Ventricles and sulci are prominent in size, consistent with diffuse cerebral atrophy, more than is ty pically seen in a patient of this age. Prominent chronic microangiopathic white matter T2 weighted hy perintensities present in the periventricular and deep white matter of cerebral hemispheres. Small ch ronic lacunar changes are present in the brainstem, associated with small punctate foci of hemosideri n deposition consistent with chronic microhemorrhage. Chronic microhemorrhage changes are also noted in the right occipital lobe and superior aspect of the right thalamus. Is no evidence of acute or rec ent hemorrhage. There is no evidence of acute ischemic injury, hemorrhage, or mass. There are no abnormal extra-axial fluid collections. EXTRACRANIAL: Unremarkable CRANIOCERVICAL JUNCTION: No significant abnormality. VASCULAR FLOW-VOIDS: No significant abnormality. IMPRESSION: No acute abnormality. Prominent chronic and age-related changes. No change when compared to MRI 09/01/2021 Signer Name: Marky Childs MD Signed: 09/03/2021 11:12 AM Workstation Name: [id number]
--- NOTE | 2021-09-03 11:19 | Progress Note ---
Assessment and Plan Assessment and Plan - Patient Problems #Confusion/ dementia---significantly better today / possible encephalopathy related to renal failure improved -pt. 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. # End stage renal disease -Strict I/O, monitor urine output every shift, avoid nephrotoxic agents, dialysis as per renal team. # Fluid overload -Dialysis as per renal team, monitor urine output every shift, monitor fluid balance. # Obesity hypoventilation syndrome -Balanced diet, increase physical activity discharge, outpatient pulmonary follow-up for sleep study. # Diabetes mellitus -Consistent carbohydrate diet, Accu-Chek, hypoglycemia protocol, insulin protocol. # Hyperlipidemia -Statin therapy as clinically indicated -LDL#40 # DVT prophylaxis -SCD to bilateral lower extremities while in bed, prophylactic anticoagulation # Advance care planning - patient is full code. will follow Subjective Date of service: 09/03/21 Principal diagnosis: Confusion Interval history: doing much better today alert interactive,knows place and his birthday Had MRI brain is remarkable for significant atrophy , no clear acute event is noted -- official report is pending, Objective - Vital Sign Vital Signs - 12hr 09/03/21 09/03/21 09/03/21 00:00 00:01 00:30 Temperature 98.9 F Pulse Rate 45 L 41 L Pulse Rate [ From Monitor] Respiratory 10 L Rate Blood Pressure 170/61 O2 Sat by Pulse 100 Oximetry 09/03/21 09/03/21 09/03/21 01:01 02:01 03:01 Temperature Pulse Rate 35 L 40 L 34 L Pulse Rate [ From Monitor] Respiratory 7 L 20 15 Rate Blood Pressure 180/60 181/72 179/60 O2 Sat by Pulse 96 97 98 Oximetry 04/13/22 04/13/22 04/13/22 04:00 04:01 04:10 Temperature Pulse Rate 34 L 36 L Pulse Rate [ 34 L From Monitor] Respiratory 10 L 10 L Rate Blood Pressure 179/65 O2 Sat by Pulse 96 96 Oximetry 09/03/21 09/03/21 09/03/21 05:01 06:01 06:31 Temperature Pulse Rate 33 L 33 L 34 L Pulse Rate [ From Monitor] Respiratory 11 L 18 23 Rate Blood Pressure 183/64 184/67 184/67 O2 Sat by Pulse 98 100 100 Oximetry 09/03/21 09/03/21 07:01 08:00 Temperature 98.5 F Pulse Rate 36 L Pulse Rate [ From Monitor] Respiratory 13 Rate Blood Pressure 184/67 O2 Sat by Pulse 100 Oximetry - General Apperance Constitutional: comfortable - EENT EENT: PERRL, mucous membranes moist - Respiratory Respiratory: chest non-tender, lungs clear - Cardiovascular Cardiovascular: regular rate, normal S1, normal S2 Extremities: no peripheral edema bilat, no clubbing, cyanosis - Gastrointestinal Gastrointestinal: normoactive bowel sounds - Integumentary Integumentary: normal - Neurologic Cranial nerve examination: PERRL, EOMI, other (right lazy eye , vision improved no visual deficit is noted) Detailed motor examination: grossly full strength in - Laboratory Findings CBC and BMP: 09/03/21 05:09 09/03/21 05:09 Abnormal Lab Findings: Abnormal Labs 09/01/21 09/01/21 09/01/21 17:31 17:31 20:48 Hgb 10.4 L Hct 31.1 L RDW 16.3 H Plt Count 132 L Cass % (Auto) 8.2 H Seg Neutrophils % 73.3 H BUN 45 H Creatinine 11.1 H Glucose 116 H POC Glucose Calcium 10.5 H Troponin T 0.140 H* NT-Pro-B Natriuret Pep 6719 H LDL Cholesterol Direct 40 L TSH 0.095 L Urine pH 09/02/21 09/02/21 09/02/21 03:12 04:33 10:11 Hgb Hct RDW Plt Count Cass % (Auto) Seg Neutrophils % BUN 21 H Creatinine 6.8 H Glucose POC Glucose Calcium Troponin T 0.169 H* D NT-Pro-B Natriuret Pep LDL Cholesterol Direct TSH Urine pH 9.0 H 09/02/21 09/02/21 09/03/21 14:06 23:05 05:09 Hgb 10.7 L Hct 32.3 L RDW 15.4 H Plt Count 137 L Cass % (Auto) 10.7 H Seg Neutrophils % BUN Creatinine Glucose POC Glucose 118 H Calcium Troponin T 0.179 H* NT-Pro-B Natriuret Pep LDL Cholesterol Direct TSH Urine pH 09/03/21 05:09 Hgb Hct RDW Plt Count Cass % (Auto) Seg Neutrophils % BUN 32 H Creatinine 9.9 H Glucose POC Glucose Calcium Troponin T NT-Pro-B Natriuret Pep LDL Cholesterol Direct TSH Urine pH
[2021-09-03] MEDS: ASPIRIN 81 MG TAB CHEW PO SCH (11:21)
[2021-09-03] MEDS: HEPARIN 5,000 UNIT/1 ML VIAL SUB-Q SCH ×2 (11:21→23:31)
[2021-09-03] MEDS: FINASTERIDE 5 MG TAB PO SCH (11:21)
[2021-09-03] MEDS: FOLIC ACID/VIT B COMP W-C 1 MG (RENAL CAPS) PO SCH (11:21)
[2021-09-03] MEDS: TAMSULOSIN 0.4 MG CAP PO SCH (11:25)
--- NOTE | 2021-09-03 12:36 | Progress Note ---
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 Patient has diminished cognition and is on a provide history. Patient history taken from EMS staff, ED staff, as well as [facility] facility staff. As per staff the patient was found to have increased confusion and "not acting like himself". EMS was notified and upon arrival the patient was found to be in distress and subsequently transported to [facility] for further care and evaluation of the aforementioned symptoms. The patient was seen and evaluated in the emergency department. All lab and imaging studies reviewed. Patient found to have clinical symptoms consistent with CHF decompensation, end- stage renal disease, fluid overload, as well as type II NSTEMI. Patient admitted to [facility] and initiated on CHF protocol. Cardiology team consulted in ED. Nephrology team consulted in ED for urgent dialysis. No reports of fever, chills, chest pain, hypertension, productive cough, skin rash, recent contact, known exposure to COVID-19. No prior admission for review. No medication listed at time of admission for reconciliation. Advanced care planning conducted in ED. 09/02 Patient undergoing dialysis today. Still with remarkable confusion continues to repeat his name when asked date of . CT of the brain was unremarkable. Ne urology evaluated the patient and documented possible lacunar infarct bilateral. Patient being seen by grades 7 8 tutor he became bradycardic. EKG- Sinus Diego Echocardiogram-pending Cardiology work up ongoing evaluating for possible complete HB with escape beats. MRI -Negative for acute pathology 09/03: No evidence of stroke, encephalopathy improving possible due to uremia. MRI negative for acute pathology. Continue supportive care. Cardiology input noted, family deciding on Intervention, patient still with bradycardia and per cardiology more of 2:1 Block. Continue current care, (1) CHF (congestive heart failure) with fluid overload Current Visit: Yes Status: Acute Qualifiers: Heart failure chronicity: acute on chronic Plan to address problem: CHF protocol: Strict I/O, monitor urine output every shift, daily weight, afterload reduction, blood pressure control, supplemental oxygen, pulse oxime try, diuretic therapy, echocardiogram ordered and pending at time of admission, cardiology team consulted, thyroid panel, magnesium level.. -No beta-jcarlos due to bradycardia -No RODOLFO/ARB/ARNI in the setting of renal failure & allergy to lisinopril (2) End stage renal disease Current Visit: Yes Status: Acute Plan to address problem: Strict I/O, monitor urine output every shift, avoid nephrotoxic agents, dialysis as per renal team. (3) Acute metabolic Encephalopathy -No futher confusion -Clinically improving, likely secondary to Uremia (4) Vascular dementia Current Visit: Yes Status: Acute Qualifiers: Dementia behavioral disturbance: without behavioral disturbance Qualified Code(s): F01.50 - Vascular dementia without behavioral disturbance Plan to address problem: Verbal prompting, verbal redirection, benzodiazepine therapy as clinically indicated. (5) Cerebral atherosclerosis Current Visit: Yes Status: Acute Plan to address problem: Risk factor reduction, supportive care. Antiplatelet therapy as clinically indicated. (6) Obesity hypoventilation syndrome Current Visit: Yes Status: Acute Plan to address problem: Balanced diet, increase physical activity discharge, outpatient pulmonary fol low-up for sleep study. (7) Diabetes mellitus Current Visit: Yes Status: Acute Plan to address problem: Consistent carbohydrate diet, Accu-Chek, hypoglycemia protocol, insulin protocol. (8) Metabolic syndrome Current Visit: Yes Status: Acute Plan to address problem: Risk factor reduction, supportive care, (9) Bradycardia Current Visit: Yes Status: Acute (10) Hyperlipidemia Current Visit: Yes Status: Acute Qualifiers: Hyperlipidemia type: mixed hyperlipidemia Qualified Code(s): E78.2 - Mixed hyperlipidemia Plan to address problem: Statin therapy as clinically indicated (11) DVT prophylaxis Current Visit: Yes Status: Acute Plan to address problem: SCD to bilateral lower extremities while in bed, prophylactic anticoagulation (12) Advance care planning Current Visit: Yes Status: Acute Plan to address problem: Disease education conducted, care plan discussed, diagnoses discussed, prognosis discussed, patient is full code. +30 minutes. History Interval history: Patient seen and examined, no acute distress, much more improved today with mentation. Undergoing HD today Hospitalist Physical - Physical exam Narrative exam: VITAL SIGNS: Reviewed. GENERAL: The patient appears normally developed, Vital signs as documented. HEAD: No signs of head trauma. EYES: Pupils are equal. Legally blind EARS: Hearing grossly intact. MOUTH: Oropharynx is normal. NECK: No adenopathy, no JVD. CHEST: Chest with clear breath sounds bilaterally. No wheezes, rales, or r honchi. CARDIAC: Regular rate and rhythm. S1 and S2, without murmurs, gallops, or rubs. VASCULAR: No Edema. Peripheral pulses normal and equal in all extremities. ABDOMEN: Soft, non tender and non distended. No rebound or guarding, and no masses palpated. Bowel Sounds normal. MUSCULOSKELETAL: Good range of motion of all major joints. Extremities without clubbing, cyanosis or edema. NEUROLOGIC EXAM: Alert and oriented x 3 lazy 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 ,unable to count fingers No focal sensory or strength deficits. Speech normal. Follows some commands. PSYCHIATRIC: Mood normal. SKIN: detail exam as documented in skin assessment - Constitutional Vitals: Temp Pulse Resp BP Pulse Ox 98.2 F 37 L 18 178/72 100 09/03/21 12:00 09/03/21 12:01 09/03/21 12:01 09/03/21 12:01 09/03/21 12:01 General appearance: Present: no acute distress HEART Score - HEART Score Troponin: Troponin T 0.179 ng/mL (0.00-0.029) H* 09/02/21 14:06 Results - Labs CBC & Chem 7: 09/03/21 05:09 09/03/21 05:09 Labs: Laboratory Last Values WBC 6.9 K/mm3 (4.5-11.0) 09/03/21 05:09 RBC 3.84 M/mm3 (3.65-5.03) 09/03/21 05:09 Hgb 10.7 gm/dl (11.8-15.2) L 09/03/21 05:09 Hct 32.3 % (35.5-45.6) L 09/03/21 05:09 MCV 84 fl (84-94) 09/03/21 05:09 MCH 28 pg (28-32) 09/03/21 05:09 MCHC 33 % (32-34) 09/03/21 05:09 RDW 15.4 % (13.2-15.2) H 09/03/21 05:09 Plt Count 137 K/mm3 (140-440) L 09/03/21 05:09 Lymph % (Auto) 31.4 % (13.4-35.0) 09/03/21 05:09 [place] % (Auto) 10.7 % (0.0-7.3) H 09/03/21 05:09 Eos % (Auto) 1.7 % (0.0-4.3) 09/03/21 05:09 Baso % (Auto) 0.6 % (0.0-1.8) 09/03/21 05:09 Lymph # (Auto) 2.2 K/mm3 (1.2-5.4) 09/03/21 05:09 [place] # (Auto) 0.7 K/mm3 (0.0-0.8) 09/03/21 05:09 Eos # (Auto) 0.1 K/mm3 (0.0-0.4) 09/03/21 05:09 Baso # (Auto) 0.0 K/mm3 (0.0-0.1) 09/03/21 05:09 Seg Neutrophils % 55.6 % (40.0-70.0) 09/03/21 05:09 Seg Neutrophils # 3.8 K/mm3 (1.8-7.7) 09/03/21 05:09 PT 13.6 Sec. (12.2-14.9) 09/03/21 05:09 INR 0.94 (0.87-1.13) 09/03/21 05:09 APTT 34.1 Sec. (24.2-36.6) 09/03/21 05:09 Sodium 142 mmol/L (137-145) 09/03/21 05:09 Potassium 4.3 mmol/L (3.6-5.0) 09/03/21 05:09 Chloride 101.7 mmol/L (98-107) 09/03/21 05:09 Carbon Dioxide 27 mmol/L (22-30) 09/03/21 05:09 Anion Gap 18 mmol/L 09/03/21 05:09 BUN 32 mg/dL (9-20) H 09/03/21 05:09 Creatinine 9.9 mg/dL (0.8-1.3) H 09/03/21 05:09 Estimated GFR 6 ml/min 09/03/21 05:09 BUN/Creatinine Ratio 3 % 09/03/21 05:09 Glucose 88 mg/dL (75-100) 09/03/21 05:09 POC Glucose 80 mg/dL (70-105) 09/03/21 11:27 Calcium 9.9 mg/dL (8.4-10.2) 09/03/21 05:09 Magnesium 2.20 mg/dL (1.7-2.3) 09/01/21 20:48 Total Bilirubin 0.30 mg/dL (0.1-1.2) 09/01/21 17:31 AST 14 units/L (5-40) 09/01/21 17:31 ALT 12 units/L (7-56) 09/01/21 17:31 Alkaline Phosphatase 70 units/L (35-129) 09/01/21 17:31 Troponin T 0.179 ng/mL (0.00-0.029) H* 09/02/21 14:06 NT-Pro-B Natriuret Pep 6719 pg/mL (0-900) H 09/01/21 17:31 Total Protein 7.7 g/dL (6.3-8.2) 09/01/21 17:31 Albumin 4.2 g/dL (3.9-5) 09/01/21 17:31 Albumin/Globulin Ratio 1.2 % 09/01/21 17:31 Triglycerides 82 mg/dL (2-149) 09/01/21 17:31 Cholesterol 107 mg/dL (50-199) 09/01/21 17:31 LDL Cholesterol Direct 40 mg/dL (50-130) L 09/01/21 17:31 HDL Cholesterol 56 mg/dL (40-59) 09/01/21 17:31 Cholesterol/HDL Ratio 1.91 % 09/01/21 17:31 TSH 0.095 mlU/mL (0.270-4.200) L 09/01/21 20:48 Free T4 1.41 ng/dL (0.76-1.46) 09/01/21 20:48 Urine Color Straw (Yellow) 09/02/21 03:12 Urine Turbidity Clear (Clear) 09/02/21 03:12 Urine pH 9.0 (5.0-7.0) H 09/02/21 03:12 Ur Specific [place] 1.008 (1.003-1.030) 09/02/21 03:12 Urine Protein 100 mg/dl mg/dL (Negative) 09/02/21 03:12 Urine Glucose (UA) 150 mg/dL (Negative) 09/02/21 03:12 Urine Ketones Neg mg/dL (Negative) 09/02/21 03:12 Urine Blood Sm (Negative) 09/02/21 03:12 Urine Nitrite Neg (Negative) 09/02/21 03:12 Urine Bilirubin Neg (Negative) 09/02/21 03:12 Urine Urobilinogen < 2.0 mg/dL (<2.0) 09/02/21 03:12 Ur Leukocyte Esterase Neg (Negative) 09/02/21 03:12 Urine WBC (Auto) 4.0 /HPF (0.0-6.0) 09/02/21 03:12 Urine RBC (Auto) 2.0 /HPF (0.0-6.0) 09/02/21 03:12 U Epithel Cells (Auto) < 1.0 /HPF (0-13.0) 09/02/21 03:12 Hep Bs Antigen Non-reactive (Negative) 09/02/21 00:09 Hep B Core IgM Ab Non-reactive (NonReactive) 09/02/21 00:09 Hepatitis C Antibody Non-reactive (NonReactive) 09/02/21 00:09 Microbiology: Microbiology 09/01/21 17:31 Peripheral/Venous Blood Culture - Preliminary NO GROWTH AFTER 24 HOURS 09/01/21 17:31 Peripheral/Venous Blood Culture - Preliminary NO GROWTH AFTER 24 HOURS [place]/IV: Voiding Method Condom Catheter Active Medications - Current Medications Current Medications: Generic Name Dose Route Start Last Admin Trade Name Freq PRN Reason Stop Dose Admin Acetaminophen 650 mg 09/01/21 20:38 Acetaminophen 325 Mg Tab PO Q6H PRN Pain MILD(1-3)/Fever >100.5/VEGAS Albuterol 2.5 mg 09/01/21 20:38 Albuterol 2.5 Mg/3 Ml Nebu IH Q3HRT PRN Shortness Of Breath Aspirin 81 mg 09/02/21 14:00 09/03/21 11:21 Aspirin 81 Mg Tab Chew PO 81 mg QDAY PAULINA Administration Atorvastatin Calcium 20 mg 09/02/21 22:00 09/02/21 22:41 Atorvastatin 20 Mg Tab PO 20 mg QHS PAULINA Administration Finasteride 5 mg 09/03/21 10:00 09/03/21 11:21 Finasteride 5 Mg Tab PO 5 mg QDAY PAULINA Administration Furosemide 20 mg 09/02/21 06:00 09/03/21 05:30 Furosemide 20 Mg/2 Ml Inj IV 20 mg BID@0600,1800 [facility] Administration Heparin Sodium (Porcine) 5,000 unit 09/01/21 22:00 09/03/21 11:21 Heparin 5,000 Unit/1 Ml Vial SUB-Q 5,000 unit Q12HR PAULINA Administration Hydralazine HCl 100 mg 09/03/21 14:00 Hydralazine 100 Mg Tab PO TID PAULINA Hydromorphone HCl 0.5 mg 09/01/21 20:38 Hydromorphone 1 Mg/1 Ml Inj IV Q23H PRN Pain , Severe (7-10) Sodium Chloride 100 mls @ 999 mls/hr 09/03/21 10:00 Nacl 0.9% IV GHAZAL PRN Hypotension Isosorbide Mononitrate 60 mg 09/03/21 10:00 09/03/21 11:24 Isosorbide Mononitrate Er 60 Mg Tab PO Not Given DAILY [facility] Latanoprost 1 drops 09/03/21 18:00 Latanoprost 0.005% Ophth Soln 2.5 Ml OU QPM [facility] Multivit/Ca Carb/B Cmplx/FA/Prenat 1 cap 09/03/21 10:00 09/03/21 11:21 Folic Acid/Vit B Comp W-C 1 Mg (Renal Caps) PO 1 cap QDAY [facility] Administration Oxycodone/Acetaminophen 1 tab 09/01/21 20:38 Oxycodone /Acetaminophen 5-325mg Tab PO Q16H PRN Pain, Moderate (4-6) Sevelamer Carbonate 2,400 mg 09/03/21 12:00 Sevelamer Carbonate 800 Mg Tab PO TIDWM PAULINA Sodium Chloride 10 ml 09/01/21 22:00 09/03/21 11:25 Sodium Chloride 0.9% 10 Ml Flush Syringe IV 10 ml BID PAULINA Administration Sodium Chloride 10 ml 09/01/21 20:38 Sodium Chloride 0.9% 10 Ml Flush Syringe IV PRN PRN LINE FLUSH Tamsulosin HCl 0.4 mg 09/03/21 10:00 09/03/21 11:25 Tamsulosin 0.4 Mg Cap PO 0.4 mg QDAY PAULINA Administration Nutrition/Malnutrition Assess - Dietary Evaluation Nutrition/Malnutrition Findings: Nutrition Notes Start: 09/02/21 10 :40 Freq: Status: Active Protocol: Document 09/02/21 10:40 SANTO (Rec: 09/02/21 11:00 SANTO [id number]) Nutrition Notes 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 Current Diet NPO 9since 09/01 20:39). Labs/Tests 09/02: BUN 21, Crea 6.8. Pertinent Medications 09/02: Nutritionally unremarkable. Height 5 ft 9 in Weight 91.7 kg [place] Body Weight (kg) 72.72 BMI 29.8 Intake Prior to Admission Good Weight change and time frame Pt states being unsure if loss body weight THERAPIST RRT. Weight Status Overweight Subjective/Other Information RD consult for risk of malnutrition assessment. Pt currently on NPO. Pt shows no signs of concern for risk of malnutrition at the time, according to Physical Assessment History notes. Pt on Room Air, O2 saturation @ 93%, according to Physical Assessment History notes. Pt lives on SNF. Percent of energy/protein needs met: Pt currently on NPO. Burn Absent Trauma Absent GI Symptoms None Food Allergy No Skin Integrity/Comment Assessment WNL. Current % PO Other Minimum of two criteria No #1 Nutrition Diagnosis No nutrition diagnosis at this time Comments: Will assess Pt's PO intake of meals at F/U. Is patient on ventilator? No Is Patient Ambulatory and/or Out of Bed Yes REE-([facility]-ambulatory/OOB) [ 2206.594 NUTR.[id number]] Kcal/Kg value to use for calculation 20 Approximate Energy Requirements Using 1834 kcal/Kg Calculation Used for Recommendations Kcal/kg Additional Notes Protein: >1.2 g/Kg ABW; >110 g /day. Fluids: 1 ml/Kcal, or as per MD. Nutrition Intervention Change Diet Order: When Pertinent, advance to Renal Diet. Follow-Up By: 09/04/21 Additional Comments When pertinent, start monitoring food tolerance, %PO intake of meals, and BM.
[2021-09-03] MEDS: SEVELAMER CARBONATE 800 MG TAB PO SCH ×2 (13:16→17:35)
--- NOTE | 2021-09-03 15:02 | Progress Note ---
Assessment and Plan Mr. Mi is a 65-year-old -Spanish male who was admitted from the emergency room with altered mental status. Found to be in CHB rates in 30-40's. Assessment Altered mental status- improving, neuro following Encephalopathy 2:1 vs Complete Heart Block End-stage renal disease(on HD) NSTEMI Elevated troponin Elevated BNP Cardiographics Initial EKG- Sinus Diego Echocardiogram 09/01/21- EF 50-55% Recommendations/plan: -Per EP, telemetry suggests 2:1 AV block versus complete heart block. -Patient is currently hemodynamically stable. Slightly hypertensive. -BP management per neuro, until cleared. -Twelve-lead with rhythm strip obtained -Permanent pacemaker placement pending final neuro evaluation. I have spoken with attending neurologist this afternoon who states he believes patient is back to baseline and AMS possibly related to renal failure. (States he will update record in AM). Family requesting update from Neurology. - Discussed neuro status with EP who will arrange for transfer to [facility] for PPM placement. - Final PPM timing pending. - Family has been updated. - Given patient's current mental status, we will defer ischemic evaluation at this time. - Patient does not show overt signs of acute heart failure. Echocardiogram as above -No beta-jcarlos due to bradycardia -No RODOLFO/ARB/ARNI in the setting of renal failure & allergy to lisinopril -Volume management per nephrology/HD Patient seen in conjunction with Dr. Giles who agrees with the assessment and management of this patien - Patient Problems (1) NSTEMI (non-ST elevated myocardial infarction) Current Visit: Yes Status: Acute (2) Bradycardia Current Visit: Yes Status: Acute (3) Altered mental status Current Visit: Yes Status: Acute (4) Diabetes mellitus Current Visit: Yes Status: Acute (5) End stage renal disease Current Visit: Yes Status: Acute (6) Hyperlipidemia Current Visit: Yes Status: Acute Qualifiers: Hyperlipidemia type: mixed hyperlipidemia Qualified Code(s): E78.2 - Mixed hyperlipidemia (7) Vascular dementia Current Visit: Yes Status: Acute Qualifiers: Dementia behavioral disturbance: without behavioral disturbance Qualified Code(s): F01.50 - Vascular dementia without behavioral disturbance Subjective Date of service: 09/03/21 Principal diagnosis: Confusion Interval history: Patient seen and examined today in the [facility]. He remains in 2:1 HB versus complete heart block with heart rates in the 30s and 40s. He is hemodynamically stable. the patient is asymptomatic. Patient remains altered. He is alert only to himself. He is pleasant, and in no apparent distress. Family updated on patient condition. Per family, she states he is usually very alert and oriented and this has been a large change from his baseline. Discussed potential plan of eventual PPM pending completed neuro workup. Family states he has never carried diagnosis of dementia to her knowledge. Telemetry:complete heart block, heart rates in the 40s Intake & Output 09/02/21 09/03/21 09/03/21 23:59 07:59 15:59 Intake Total 120 0 Output Total 425 100 Balance -305 -100 Weight 89.9 kg Objective Vital Signs Temp Pulse Pulse Resp BP Pulse Ox Pulse Ox 09/03/21 14:30 52 L 138/64 09/03/21 14:15 55 L 135/68 09/03/21 14:00 54 L 142/69 09/03/21 13:45 49 L 135/64 09/03/21 13:30 48 L 156/66 09/03/21 13:15 42 L 154/65 09/03/21 13:00 41 L 169/75 09/03/21 12:53 40 L 176/69 09/03/21 12:31 98.2 F 41 L 18 184/74 100 09/03/21 12:01 37 L 18 178/72 100 09/03/21 12:00 98.2 F 40 L 26 H 98 09/03/21 11:31 39 L 15 142/72 100 09/03/21 11:24 36 L 142/72 09/03/21 11:01 39 L 13 142/72 100 09/03/21 10:30 38 L 16 192/69 100 09/03/21 10:29 38 L 15 169/78 98 09/03/21 09:41 34 L 09/03/21 09:01 35 L 21 169/78 95 09/03/21 08:31 33 L 19 175/62 95 09/03/21 08:01 34 L 13 175/62 100 09/03/21 08:00 98.5 F 32 L 22 96 09/03/21 07:31 35 L 14 175/74 100 09/03/21 07:01 36 L 13 184/67 100 09/03/21 06:31 34 L 23 184/67 100 09/03/21 06:01 33 L 18 184/67 100 09/03/21 05:01 33 L 11 L 183/64 98 09/03/21 04:10 36 L 09/03/21 04:01 34 L 10 L 179/65 96 09/03/21 04:00 34 L 10 L 96 09/03/21 03:01 34 L 15 179/60 98 09/03/21 02:01 40 L 20 181/72 97 09/03/21 01:01 35 L 7 L 180/60 96 09/03/21 00:30 41 L 09/03/21 00:01 45 L 10 L 170/61 100 09/03/21 00:00 98.9 F 09/02/21 23:01 39 L 15 170/61 99 09/02/21 22:11 43 L 21 133/95 100 09/02/21 22:01 47 L 18 133/95 100 09/02/21 21:31 44 L 17 173/66 96 09/02/21 21:01 42 L 13 173/66 97 09/02/21 20:50 37 L 09/02/21 20:31 41 L 16 176/65 95 09/02/21 20:01 42 L 12 176/65 95 09/02/21 20:00 42 L 12 95 09/02/21 19:45 42 L 18 164/71 98 09/02/21 19:31 41 L 19 164/71 97 09/02/21 19:15 45 L 17 168/80 90 09/02/21 19:01 46 L 17 188/104 97 09/02/21 18:45 43 L 17 158/87 98 09/02/21 18:31 26 H 148/90 97 09/02/21 18:15 28 H 191/140 99 09/02/21 18:01 29 H 170/61 98 09/02/21 17:47 97 H 30 H 170/61 100 09/02/21 17:30 75 16 154/136 99 09/02/21 17:16 104 H 17 154/136 96 09/02/21 17:00 17 169/77 99 09/02/21 16:46 38 L 20 169/77 99 09/02/21 16:30 38 L 14 156/78 09/02/21 16:16 42 L 16 171/70 94 09/02/21 16:00 40 L 42 L 15 160/82 97 09/02/21 15:46 41 L 14 169/72 97 09/02/21 15:30 39 L 13 157/66 97 09/02/21 15:16 39 L 21 167/74 98 - Physical Examination HEENT: Positive: Normocephaly Neck: Positive: trachea midline Cardiac: Positive: S1/S2, Bradycardia Lungs: Positive: Decreased Breath Sounds Neuro: Positive: Other (A&O x 1; disoriented. arousable. ) Abdomen: Positive: Soft, Active Bowel Sounds Skin: Negative: Rash Extremities: Present: upper extr. pulses (2+), lower extr. pulses (1+). Absent: edema - Labs and Meds Coagulation 09/03/21 Range/Units 05:09 PT 13.6 (12.2-14.9) Sec. INR 0.94 (0.87-1.13) APTT 34.1 (24.2-36.6) Sec. CBC 09/03/21 Range/Units 05:09 WBC 6.9 (4.5-11.0) K/mm3 RBC 3.84 (3.65-5.03) M/mm3 Hgb 10.7 L (11.8-15.2) gm/dl Hct 32.3 L (35.5-45.6) % Plt Count 137 L (140-440) K/mm3 Lymph # (Auto) 2.2 (1.2-5.4) K/mm3 [place] # (Auto) 0.7 (0.0-0.8) K/mm3 Eos # (Auto) 0.1 (0.0-0.4) K/mm3 Baso # (Auto) 0.0 (0.0-0.1) K/mm3 Comprehensive Metabolic Panel 09/03/21 Range/Units 05:09 Sodium 142 (137-145) mmol/L Potassium 4.3 (3.6-5.0) mmol/L Chloride 101.7 (98-107) mmol/L Carbon Dioxide 27 (22-30) mmol/L BUN 32 H (9-20) mg/dL Creatinine 9.9 H (0.8-1.3) mg/dL Glucose 88 (75-100) mg/dL Calcium 9.9 (8.4-10.2) mg/dL - Imaging and Cardiology EKG: pending, image reviewed Echo: report reviewed - Telemetry EKG Rhythm: 3rd Degree HB - Allied health notes Allied health notes reviewed: nursing
[2021-09-03] MEDS: hydrALAZINE 100 MG TAB PO SCH ×2 (15:35→20:00)
[2021-09-03] MEDS ORDERED: LATANOPROST 0.005% OPHTH SOLN 2.5 ML OU SCH (18:00)
[2021-09-04] MEDS: SEVELAMER CARBONATE 800 MG TAB PO SCH ×3 (08:54→17:28)
[2021-09-04] MEDS: hydrALAZINE 100 MG TAB PO SCH (08:54)
--- NOTE | 2021-09-04 10:35 | Progress Note ---
Assessment and Plan Assessment and Plan - Patient Problems #Confusion-significantly better today - possible encephalopathy related to renal failure , HTN improved -pt. 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 -improved vision , lazy right eye since childhood -Maintain ASA and Lipitor -MRI brain report is remarkable for atrophy and multiple BG remote infarct , no acute event is noted # slight left side weakness--improved -possibly remote -US acrotid<50% bialteral -Echo--EF#50-55% with mild diastolic dysfunction -LDL#40 -maintain ASA and Lipitor # Bradycardia -HR#38 -No objection to pace maker -evaluetd by cardiology # CHF (congestive heart failure) -CHF protocol: Strict I/O, monitor urine output every shift, daily weight, afterload reduction, blood pressure control, supplemental oxygen, pulse oximetry, diuretic therapy, echocardiogram ordered and pending at time of admission, cardiology team consulted, thyroid panel, magnesium level.. # End stage renal disease -Strict I/O, monitor urine output every shift, avoid nephrotoxic agents, dialysis as per renal team. # Fluid overload -Dialysis as per renal team, monitor urine output every shift, monitor fluid balance. # Obesity hypoventilation syndrome -Balanced diet, increase physical activity discharge, outpatient pulmonary follow-up for sleep study. # Diabetes mellitus -Consistent carbohydrate diet, Accu-Chek, hypoglycemia protocol, insulin protocol. # Hyperlipidemia -Statin therapy as clinically indicated -LDL#40 # DVT prophylaxis -SCD to bilateral lower extremities while in bed, prophylactic anticoagulation # Advance care planning - patient is full code. will follow Subjective Date of service: 09/04/21 Principal diagnosis: Confusion Interval history: doing much better today alert interactive,knows place and his birthday Had MRI brain is remarkable for significant atrophy , no clear acute event is no christi evaluated by cardiology for pace maker placement HR#38 Objective - Vital Sign Vital Signs - 12hr 09/04/21 09/04/21 09/04/21 00:00 01:00 01:19 Temperature 97.8 F Pulse Rate 60 41 L Pulse Rate [ 48 L From Monitor] Respiratory 22 19 Rate Blood Pressure 155/136 O2 Sat by Pulse 97 100 Oximetry 09/04/21 09/04/21 09/04/21 01:31 02:01 02:31 Temperature Pulse Rate 51 L 41 L 42 L Pulse Rate [ From Monitor] Respiratory 16 17 23 Rate Blood Pressure 155/136 141/71 141/71 O2 Sat by Pulse 100 91 92 Oximetry 09/04/21 09/04/21 09/04/21 03:01 03:31 04:00 Temperature 98.4 F Pulse Rate 40 L 40 L Pulse Rate [ 48 L From Monitor] Respiratory 15 19 22 Rate Blood Pressure 149/63 149/63 O2 Sat by Pulse 100 100 97 Oximetry 09/04/21 09/04/21 09/04/21 04:01 04:31 05:00 Temperature Pulse Rate 43 L 39 L 58 L Pulse Rate [ From Monitor] Respiratory 16 17 Rate Blood Pressure 151/58 151/58 O2 Sat by Pulse 93 100 Oximetry 09/04/21 09/04/21 09/04/21 05:01 05:31 06:01 Temperature Pulse Rate 38 L 39 L 38 L Pulse Rate [ From Monitor] Respiratory 18 13 20 Rate Blood Pressure 162/65 162/65 151/69 O2 Sat by Pulse 96 96 97 Oximetry 09/04/21 09/04/21 09/04/21 06:31 07:01 08:14 Temperature 97.8 F Pulse Rate 40 L 38 L Pulse Rate [ From Monitor] Respiratory 19 14 Rate Blood Pressure 151/69 160/65 O2 Sat by Pulse 92 99 Oximetry - General Apperance Constitutional: comfortable - EENT EENT: PERRL, mucous membranes moist - Respiratory Respiratory: lungs clear, rhonchi - Cardiovascular Cardiovascular: regular rate, normal S1, normal S2 Extremities: no peripheral edema bilat, no clubbing, cyanosis - Gastrointestinal Gastrointestinal: normoactive bowel sounds - Integumentary Integumentary: normal - Neurologic Cranial nerve examination: PERRL, EOMI, intact Speech examination: intact Detailed motor examination: grossly full strength in - Laboratory Findings CBC and BMP: 09/03/21 05:09 09/03/21 05:09 Abnormal Lab Findings: Abnormal Labs 09/01/21 09/01/21 09/01/21 17:31 17:31 20:48 Hgb 10.4 L Hct 31.1 L RDW 16.3 H Plt Count 132 L [place] % (Auto) 8.2 H Seg Neutrophils % 73.3 H BUN 45 H Creatinine 11.1 H Glucose 116 H POC Glucose Calcium 10.5 H Troponin T 0.140 H* NT-Pro-B Natriuret Pep 6719 H LDL Cholesterol Direct 40 L TSH 0.095 L Urine pH 09/02/21 09/02/21 09/02/21 03:12 04:33 10:11 Hgb Hct RDW Plt Count [place] % (Auto) Seg Neutrophils % BUN 21 H Creatinine 6.8 H Glucose POC Glucose Calcium Troponin T 0.169 H* D NT-Pro-B Natriuret Pep LDL Cholesterol Direct TSH Urine pH 9.0 H 09/02/21 09/02/21 09/03/21 14:06 23:05 05:09 Hgb 10.7 L Hct 32.3 L RDW 15.4 H Plt Count 137 L [place] % (Auto) 10.7 H Seg Neutrophils % BUN Creatinine Glucose POC Glucose 118 H Calcium Troponin T 0.179 H* NT-Pro-B Natriuret Pep LDL Cholesterol Direct TSH Urine pH 09/03/21 09/03/21 09/04/21 05:09 17:34 06:01 Hgb Hct RDW Plt Count [place] % (Auto) Seg Neutrophils % BUN 32 H Creatinine 9.9 H Glucose POC Glucose 142 H 108 H Calcium Troponin T NT-Pro-B Natriuret Pep LDL Cholesterol Direct TSH Urine pH
[2021-09-04] MEDS: FINASTERIDE 5 MG TAB PO SCH (10:49)
[2021-09-04] MEDS: ASPIRIN 81 MG TAB CHEW PO SCH (10:49)
[2021-09-04] MEDS: FOLIC ACID/VIT B COMP W-C 1 MG (RENAL CAPS) PO SCH (10:50)
[2021-09-04] MEDS: HEPARIN 5,000 UNIT/1 ML VIAL SUB-Q SCH (10:50)
[2021-09-04] MEDS: TAMSULOSIN 0.4 MG CAP PO SCH (10:50)
--- NOTE | 2021-09-04 11:27 | Progress Note ---
Assessment and Plan Assessment and plan: 65 YO Alf Facility Resident with Vascular Dementia, Cerebral Atherosclerosis, ESRD on HD, HTN, DM, Obesity, HLD presents to ED for evaluation. Patient has diminished cognition and is on a provide history. Patient history taken from EMS staff, ED staff, as well as correction facility staff. As per staff the patient was found to have increased confusion and "not acting like himself". EMS was notified and upon arrival the patient was found to be in distress and subsequently transported to [facility] for further care and evaluation of the aforementioned symptoms. The patient was seen and evaluated in the emergency department. All lab and imaging studies reviewed. Patient found to have clinical symptoms consistent with CHF decompensation, end- stage renal disease, fluid overload, as well as type II NSTEMI. Patient admitted to [facility] and initiated on CHF protocol. Cardiology team consulted in ED. Nephrology team consulted in ED for urgent dialysis. No reports of fever, chills, chest pain, hypertension, productive cough, skin rash, recent contact, known exposure to COVID-19. No prior admission for review. No medication listed at time of admission for reconciliation. Advanced care planning conducted in ED. 09/02 Patient undergoing dialysis today. Still with remarkable confusion continues to repeat his name when asked date of . CT of the brain was unremarkable. Ne urology evaluated the patient and documented possible lacunar infarct bilateral. Patient being seen by staff forester he became bradycardic. EKG- Sinus Diego Echocardiogram-pending Cardiology work up ongoing evaluating for possible complete HB with escape beats. MRI -Negative for acute pathology 09/03: No evidence of stroke, encephalopathy improving possible due to uremia. MRI negative for acute pathology. Continue supportive care. Cardiology input noted, family deciding on Intervention, patient still with bradycardia and per cardiology more of 2:1 Block. Continue current care, 09/04: Patient continues to clinically improve able to carry on full conversation alert awake oriented x3. 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 I spoke with the family . Trupti Alexis who is agreeable to [facility] and states there is already conversation with them about transfer to [place]. Patient will continue with [facility] stay (1) CHF (congestive heart failure) with fluid overload Current Visit: Yes Status: Acute Qualifiers: Heart failure chronicity: acute on chronic Plan to address problem: CHF protocol: Strict I/O, monitor urine output every shift, daily weight, afterload reduction, blood pressure control, supplemental oxygen, pulse oximetry, diuretic therapy, echocardiogram ordered and pending at time of admission, cardiology team consulted, thyroid panel, magnesium level.. -No beta-jcarlos due to bradycardia -No RODOLFO/ARB/ARNI in the setting of renal failure & allergy to lisinopril (2) End stage renal disease Current Visit: Yes Status: Acute Plan to address problem: Strict I/O, monitor urine output every shift, avoid nephrotoxic agents, dialysis as per renal team. (3) Acute metabolic Encephalopathy -No futher confusion -Clinically improving, likely secondary to Uremia (4) Vascular dementia-ruled out (5) Cerebral atherosclerosis Current Visit: Yes Status: Acute Plan to address problem: Risk factor reduction, supportive care. Antiplatelet therapy as clinically indicated. (6) Obesity hypoventilation syndrome Current Visit: Yes Status: Acute Plan to address problem: Balanced diet, increase physical activity discharge, outpatient pulmonary follow-up for sleep study. (7) Diabetes mellitus Current Visit: Yes Status: Acute Plan to address problem: Consistent carbohydrate diet, Accu-Chek, hypoglycemia protocol, insulin protocol. (8) Metabolic syndrome Current Visit: Yes Status: Acute Plan to address problem: Risk factor reduction, supportive care, (9) Bradycardia Current Visit: Yes Status: Acute (10) Hyperlipidemia Current Visit: Yes Status: Acute Qualifiers: Hyperlipidemia type: mixed hyperlipidemia Qualified Code(s): E78.2 - Mixed hyperlipidemia Plan to address problem: Statin therapy as clinically indicated (11) LAZY eye: since child sauced[place]. Legal blind (12) DVT prophylaxis Current Visit: Yes Status: Acute Plan to address problem: SCD to bilateral lower extremities while in bed, prophylactic anticoagulation (13) Advance care planning Current Visit: Yes Status: Acute Plan to address problem: Disease education conducted, care plan discussed, diagnoses discussed, prognosis discussed, patient is full code. +30 minutes. Hospitalist Physical - Constitutional Vitals: Temp Pulse Resp BP Pulse Ox 97.8 F 42 L 14 113/68 99 09/04/21 08:14 09/04/21 10:49 09/04/21 07:01 09/04/21 10:49 09/04/21 07:01 General appearance: Present: no acute distress HEART Score - HEART Score Troponin: Troponin T 0.179 ng/mL (0.00-0.029) H* 09/02/21 14:06 Results - Labs CBC & Chem 7: 09/03/21 05:09 09/03/21 05:09 Labs: Laboratory Last Values WBC 6.9 K/mm3 (4.5-11.0) 09/03/21 05:09 RBC 3.84 M/mm3 (3.65-5.03) 09/03/21 05:09 Hgb 10.7 gm/dl (11.8-15.2) L 09/03/21 05:09 Hct 32.3 % (35.5-45.6) L 09/03/21 05:09 MCV 84 fl (84-94) 09/03/21 05:09 MCH 28 pg (28-32) 09/03/21 05:09 MCHC 33 % (32-34) 09/03/21 05:09 RDW 15.4 % (13.2-15.2) H 09/03/21 05:09 Plt Count 137 K/mm3 (140-440) L 09/03/21 05:09 Lymph % (Auto) 31.4 % (13.4-35.0) 09/03/21 05:09 Drew % (Auto) 10.7 % (0.0-7.3) H 09/03/21 05:09 Eos % (Auto) 1.7 % (0.0-4.3) 09/03/21 05:09 Baso % (Auto) 0.6 % (0.0-1.8) 09/03/21 05:09 Lymph # (Auto) 2.2 K/mm3 (1.2-5.4) 09/03/21 05:09 Drew # (Auto) 0.7 K/mm3 (0.0-0.8) 09/03/21 05:09 Eos # (Auto) 0.1 K/mm3 (0.0-0.4) 09/03/21 05:09 Baso # (Auto) 0.0 K/mm3 (0.0-0.1) 09/03/21 05:09 Seg Neutrophils % 55.6 % (40.0-70.0) 09/03/21 05:09 Seg Neutrophils # 3.8 K/mm3 (1.8-7.7) 09/03/21 05:09 PT 13.6 Sec. (12.2-14.9) 09/03/21 05:09 INR 0.94 (0.87-1.13) 09/03/21 05:09 APTT 34.1 Sec. (24.2-36.6) 09/03/21 05:09 Sodium 142 mmol/L (137-145) 09/03/21 05:09 Potassium 4.3 mmol/L (3.6-5.0) 09/03/21 05:09 Chloride 101.7 mmol/L (98-107) 09/03/21 05:09 Carbon Dioxide 27 mmol/L (22-30) 09/03/21 05:09 Anion Gap 18 mmol/L 09/03/21 05:09 BUN 32 mg/dL (9-20) H 09/03/21 05:09 Creatinine 9.9 mg/dL (0.8-1.3) H 09/03/21 05:09 Estimated GFR 6 ml/min 09/03/21 05:09 BUN/Creatinine Ratio 3 % 09/03/21 05:09 Glucose 88 mg/dL (75-100) 09/03/21 05:09 POC Glucose 108 mg/dL (70-105) H 09/04/21 06:01 Calcium 9.9 mg/dL (8.4-10.2) 09/03/21 05:09 Magnesium 2.20 mg/dL (1.7-2.3) 09/01/21 20:48 Total Bilirubin 0.30 mg/dL (0.1-1.2) 09/01/21 17:31 AST 14 units/L (5-40) 09/01/21 17:31 ALT 12 units/L (7-56) 09/01/21 17:31 Alkaline Phosphatase 70 units/L (35-129) 09/01/21 17:31 Troponin T 0.179 ng/mL (0.00-0.029) H* 09/02/21 14:06 NT-Pro-B Natriuret Pep 6719 pg/mL (0-900) H 09/01/21 17:31 Total Protein 7.7 g/dL (6.3-8.2) 09/01/21 17:31 Albumin 4.2 g/dL (3.9-5) 09/01/21 17:31 Albumin/Globulin Ratio 1.2 % 09/01/21 17:31 Triglycerides 82 mg/dL (2-149) 09/01/21 17:31 Cholesterol 107 mg/dL (50-199) 09/01/21 17:31 LDL Cholesterol Direct 40 mg/dL (50-130) L 09/01/21 17:31 HDL Cholesterol 56 mg/dL (40-59) 09/01/21 17:31 Cholesterol/HDL Ratio 1.91 % 09/01/21 17:31 Vitamin B12 649.7 pg/mL (211-911) 09/03/21 11:29 TSH 0.095 mlU/mL (0.270-4.200) L 09/01/21 20:48 Free T4 1.41 ng/dL (0.76-1.46) 09/01/21 20:48 Urine Color Straw (Yellow) 09/02/21 03:12 Urine Turbidity Clear (Clear) 09/02/21 03:12 Urine pH 9.0 (5.0-7.0) H 09/02/21 03:12 Ur Specific [place] 1.008 (1.003-1.030) 09/02/21 03:12 Urine Protein 100 mg/dl mg/dL (Negative) 09/02/21 03:12 Urine Glucose (UA) 150 mg/dL (Negative) 09/02/21 03:12 Urine Ketones Neg mg/dL (Negative) 09/02/21 03:12 Urine Blood Sm (Negative) 09/02/21 03:12 Urine Nitrite Neg (Negative) 09/02/21 03:12 Urine Bilirubin Neg (Negative) 09/02/21 03:12 Urine Urobilinogen < 2.0 mg/dL (<2.0) 09/02/21 03:12 Ur Leukocyte Esterase Neg (Negative) 09/02/21 03:12 Urine WBC (Auto) 4.0 /HPF (0.0-6.0) 09/02/21 03:12 Urine RBC (Auto) 2.0 /HPF (0.0-6.0) 09/02/21 03:12 U Epithel Cells (Auto) < 1.0 /HPF (0-13.0) 09/02/21 03:12 Nasal Screen MRSA (PCR) Negative (Negative) 09/02/21 16:00 Hep Bs Antigen Non-reactive (Negative) 09/02/21 00:09 Hep B Core IgM Ab Non-reactive (NonReactive) 09/02/21 00:09 Hepatitis C Antibody Non-reactive (NonReactive) 09/02/21 00:09 Microbiology: Microbiology 09/01/21 17:31 Peripheral/Venous Blood Culture - Preliminary NO GROWTH AFTER 48 HOURS 09/01/21 17:31 Peripheral/Venous Blood Culture - Preliminary NO GROWTH AFTER 48 HOURS Beebe/IV: Voiding Method Condom Catheter Active Medications - Current Medications Current Medications: Generic Name Dose Route Start Last Admin Trade Name Freq PRN Reason Stop Dose Admin Acetaminophen 650 mg 09/01/21 20:38 Acetaminophen 325 Mg Tab PO Q6H PRN Pain MILD(1-3)/Fever >100.5/VEGAS Albuterol 2.5 mg 09/01/21 20:38 Albuterol 2.5 Mg/3 Ml Nebu IH Q3HRT PRN Shortness Of Breath Aspirin 81 mg 09/02/21 14:00 09/04/21 10:49 Aspirin 81 Mg Tab Chew PO 81 mg QDAY PAULINA Administration Atorvastatin Calcium 20 mg 09/02/21 22:00 09/03/21 23:32 Atorvastatin 20 Mg Tab PO 20 mg QHS PAULINA Administration Finasteride 5 mg 09/03/21 10:00 09/04/21 10:49 Finasteride 5 Mg Tab PO 5 mg QDAY PAULINA Administration Furosemide 20 mg 09/02/21 06:00 09/03/21 20:00 Furosemide 20 Mg/2 Ml Inj IV 20 mg BID@0600,1800 PAULINA Administration Heparin Sodium (Porcine) 5,000 unit 09/01/21 22:00 09/04/21 10:50 Heparin 5,000 Unit/1 Ml Vial SUB-Q 5,000 unit Q12HR PAULINA Administration Hydralazine HCl 100 mg 09/03/21 14:00 09/04/21 08:54 Hydralazine 100 Mg Tab PO 100 mg TID PAULINA Administration Hydromorphone HCl 0.5 mg 09/01/21 20:38 Hydromorphone 1 Mg/1 Ml Inj IV Q23H PRN Pain , Severe (7-10) Sodium Chloride 100 mls @ 999 mls/hr 09/03/21 10:00 Nacl 0.9% IV GHAZAL PRN Hypotension Isosorbide Mononitrate 60 mg 09/03/21 10:00 09/04/21 10:49 Isosorbide Mononitrate Er 60 Mg Tab PO 60 mg DAILY PAULINA Administration Latanoprost 1 drops 09/03/21 18:00 09/03/21 17:35 Latanoprost 0.005% Ophth Soln 2.5 Ml OU 1 drops QPM PAULINA Administration Multivit/Ca Carb/B Cmplx/FA/Prenat 1 cap 09/03/21 10:00 09/04/21 10:50 Folic Acid/Vit B Comp W-C 1 Mg (Renal Caps) PO 1 cap QDAY PAULINA Administration Oxycodone/Acetaminophen 1 tab 09/01/21 20:38 Oxycodone /Acetaminophen 5-325mg Tab PO Q16H PRN Pain, Moderate (4-6) Sevelamer Carbonate 2,400 mg 09/03/21 12:00 09/04/21 08:54 Sevelamer Carbonate 800 Mg Tab PO 2,400 mg TIDWM PAULINA Administration Sodium Chloride 10 ml 09/01/21 22:00 09/04/21 10:50 Sodium Chloride 0.9% 10 Ml Flush Syringe IV 10 ml BID PAULINA Administration Sodium Chloride 10 ml 09/01/21 20:38 Sodium Chloride 0.9% 10 Ml Flush Syringe IV PRN PRN LINE FLUSH Tamsulosin HCl 0.4 mg 09/03/21 10:00 09/04/21 10:50 Tamsulosin 0.4 Mg Cap PO 0.4 mg QDAY PAULINA Administration Nutrition/Malnutrition Assess - Dietary Evaluation Nutrition/Malnutrition Findings: Nutrition Notes Start: 09/02/21 10:40 Freq: Status: Active Protocol: Document 09/02/21 10:40 SANTO (Rec: 09/02/21 11:00 SANTO [email or web address]) Nutrition Notes 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 Current Diet NPO 9since 09/01 20:39). Labs/Tests 09/02: BUN 21, Crea 6.8. Pertinent Medications 09/02: Nutritionally unremarkable. 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 Weight Status Overweight Subjective/Other Information RD consult for risk of malnutrition assessment. Pt currently on NPO. Pt shows no signs of concern for risk of malnutrition at the time, according to Physical Assessment History notes. Pt on Room Air, O2 saturation @ 93%, according to Physical Assessment History notes. Pt lives on SNF. Percent of energy/protein needs met: Pt currently on NPO. Burn Absent Trauma Absent GI Symptoms None Food Allergy No Skin Integrity/Comment Assessment WNL. Current % PO Other Minimum of two criteria No #1 Nutrition Diagnosis No nutrition diagnosis at this time Comments: Will assess Pt's PO intake of meals at F/U. Is patient on ventilator? No Is Patient Ambulatory and/or Out of Bed Yes REE-([place]-St. Jeor-ambulatory/OOB) [ 2206.594 NUTR.[id number]] Kcal/Kg value to use for calculation 20 Approximate Energy Requirements Using 1834 kcal/Kg Calculation Used for Recommendations Kcal/kg Additional Notes Protein: >1.2 g/Kg ABW; >110 g /day. Fluids: 1 ml/Kcal, or as per MD. Nutrition Intervention Change Diet Order: When Pertinent, advance to Renal Diet. Follow-Up By: 09/04/21 Additional Comments When pertinent, start monitoring food tolerance, %PO intake of meals, and BM.
--- NOTE | 2021-09-04 15:15 | Progress Note ---
Assessment and Plan Mr. Mi is a 65-year-old -Spanish male who was admitted from the emergency room with altered mental status. Found to be in CHB rates in 30-40's. Altered mental status- improving, neuro following Encephalopathy 2:1 vs Complete Heart Block End-stage renal disease(on HD) NSTEMI Elevated troponin Elevated BNP Echocardiogram 09/01/21- EF 50-55% mild concentric LVH. Mild diastolic dysfunction present impaired luxation pattern. Mild tricuspid regurgitation. Mild pulmonary hypertension. No pericardial effusion Plan: Per EP, telemetry suggests 2:1 AV block versus complete heart block. Patient is currently hemodynamically stable. Slightly hypertensive. Would rather patient be hypertensive at this time until PPM placed. Stop all antihypertensive Twelve-lead with rhythm strip obtained Patient to be transferred to [facility]. Accepting physician is Dr. Brayan Aguilar. Discussed transfer with accepting physician earlier today Final PPM timing pending. Given patient's current condition we will defer ischemic evaluation at this time. No beta-jcarlos due to heart block No RODOLFO/ARB/ARNI in the setting of renal failure & allergy to lisinopril Volume management per nephrology/HD Patient seen in conjunction with Dr. Giles who agrees with the assessment and management of this patien - Patient Problems (1) Complete heart block Current Visit: Yes Status: Acute (2) Bradycardia Current Visit: Yes Status: Acute (3) Cerebral atherosclerosis Current Visit: Yes Status: Acute (4) Diabetes mellitus Current Visit: Yes Status: Acute (5) End stage renal disease Current Visit: Yes Status: Acute (6) NSTEMI (non-ST elevated myocardial infarction) Current Visit: Yes Status: Acute Subjective Date of service: 09/04/21 Principal diagnosis: Confusion Interval history: Patient resting in bed in no acute distress. Patient mental status significantly improved today. Patient alert and oriented and able to have a conversation Patient remained in complete heart block rate trending in the 40s. However patient appears hemodynamically stable Objective Vital Signs Temp Pulse Pulse Resp BP Pulse Ox Pulse Ox 09/04/21 12:00 97.9 F 09/04/21 10:49 42 L 113/68 09/04/21 08:14 97.8 F 09/04/21 07:01 38 L 14 160/65 99 09/04/21 06:31 40 L 19 151/69 92 09/04/21 06:01 38 L 20 151/69 97 09/04/21 05:31 39 L 13 162/65 96 09/04/21 05:01 38 L 18 162/65 96 09/04/21 05:00 58 L 09/04/21 04:31 39 L 17 151/58 100 09/04/21 04:01 43 L 16 151/58 93 09/04/21 04:00 98.4 F 48 L 22 97 09/04/21 03:31 40 L 19 149/63 100 09/04/21 03:01 40 L 15 149/63 100 09/04/21 02:31 42 L 23 141/71 92 09/04/21 02:01 41 L 17 141/71 91 09/04/21 01:31 51 L 16 155/136 100 09/04/21 01:19 41 L 19 155/136 100 09/04/21 01:00 60 09/04/21 00:00 97.8 F 48 L 22 97 09/03/21 21:19 46 L 17 155/136 99 09/03/21 21:01 47 L 12 155/136 98 09/03/21 21:00 58 L 09/03/21 20:31 47 L 19 153/72 99 09/03/21 20:01 65 20 153/72 98 09/03/21 20:00 97.9 F 48 L 22 97 09/03/21 19:31 67 17 158/71 09/03/21 19:01 48 L 18 158/71 98 09/03/21 18:31 48 L 15 140/66 95 09/03/21 18:01 49 L 20 140/66 99 09/03/21 17:31 47 L 24 135/78 95 09/03/21 17:01 98.4 F 65 25 H 135/78 91 96 09/03/21 17:00 45 L 09/03/21 16:31 50 L 10 L 136/59 98 09/03/21 16:29 53 L 136/59 09/03/21 16:19 43 L 141/63 09/03/21 16:01 63 25 H 75/48 95 09/03/21 16:00 98.4 F 55 L 48 L 22 75/48 97 09/03/21 15:45 61 131/62 09/03/21 15:30 65 19 121/70 96 09/03/21 15:15 60 142/82 - Physical Examination General: No Apparent Distress HEENT: Positive: Normocephaly Neck: Positive: trachea midline Cardiac: Positive: Other Lungs: Positive: Normal Breath Sounds (Complete heart block) Neuro: Positive: Grossly Intact, Other (Mental status significantly improved) Abdomen: Positive: Soft, Active Bowel Sounds Skin: Negative: Rash Extremities: Present: upper extr. pulses (2+), lower extr. pulses (1+). Absent: edema - Imaging and Cardiology EKG: pending, image reviewed Echo: report reviewed - Telemetry EKG Rhythm: 3rd Degree HB AV and intraventricular conduction: complete (3) AV block - Allied health notes Allied health notes reviewed: nursing
--- NOTE | 2021-09-04 17:06 | Discharge Summary ---
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 Patient has diminished cognition and is on a provide history. Patient history taken from EMS staff, ED staff, as well as residential facility staff. As per staff the patient was found to have increased confusion and "not acting like himself". EMS was notified and upon arrival the patient wa s found to be in distress and subsequently transported to [facility] for further care and evaluation of the aforementioned symptoms. The patient was seen and evaluated in the emergency department. All lab and imaging studies reviewed. Patient found to have clinical symptoms consistent with CHF decompensation, end- stage renal disease, fluid overload, as well as type II NSTEMI. Patient admitted to [facility] and initiated on CHF protocol. Cardiology team consulted in ED. Nephrology team consulted in ED for urgent dialysis. No reports of fever, chills, chest pain, hypertension, productive cough, skin rash, recent contact, known exposure to COVID-19. No prior admission for review. No medication listed at time of admission for reconciliation. Advanced care planning conducted in ED. 09/02 Patient undergoing dialysis today. Still with remarkable confusion continues to repeat his name when asked date of . CT of the brain was unremarkable. Neurology evaluated the patient and documented possible lacunar infarct bilateral. Patient being seen by folder machine operator he became bradycardic. EKG- Sinus Diego Echocardiogram-pending Cardiology work up ongoing evaluating for possible complete HB with escape beats. MRI -Negative for acute pathology 09/03: No evidence of stroke, encephalopathy improving possible due to uremia. MRI negative for acute pathology. Continue supportive care. Cardiology input noted, family deciding on Intervention, patient still with bradycardia and per cardiology more of 2:1 Block. Continue current care, 09/04: Patient continues to clinically improve able to carry on full conversation alert awake oriented x3. 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 I spoke with the family Ms. Trupti Alexis who is agreeable to PPM and states there is already conversation with them about transfer to [place]. Patient will continue with IMCU stay PATIENT TO TRANSFER TO [place] FOR PPM PLACEMENT (1) CHF (congestive heart failure) with fluid overload Current Visit: Yes Status: Acute Qualifiers: Heart failure chronicity: acute on chronic Plan to address problem: CHF protocol: Strict I/O, monitor urine output every shift, daily weight, afterload reduction, blood pressure control, supplemental oxygen, pulse oximetry, diuretic therapy, echocardiogram ordered and pending at time of admission, cardiology team consulted, thyroid panel, magnesium level.. -No beta-jcarlos due to bradycardia -No RODOLFO/ARB/ARNI in the setting of renal failure & allergy to lisinopril (2) End stage renal disease Current Visit: Yes Status: Acute Plan to address problem: Strict I/O, monitor urine output every shift, avoid nephrotoxic agents, dialysis as per renal team. (3) Acute metabolic Encephalopathy -No futher confusion -Clinically improving, likely secondary to Uremia (4) Vascular dementia-ruled out (5) Cerebral atherosclerosis Current Visit: Yes Status: Acute Plan to address problem: Risk factor reduction, supportive care. Antiplatelet therapy as clinically indicated. (6) Obesity hypoventilation syndrome Current Visit: Yes Status: Acute Plan to address problem: Balanced diet, increase physical activity discharge, outpatient pulmonary follow-up for sleep study. (7) Diabetes mellitus Current Visit: Yes Status: Acute Plan to address problem: Consistent carbohydrate diet, Accu-Chek, hypoglycemia protocol, insulin protocol. 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 Legal blind Disposition: 02 SHORT TERM HOSPITAL Final Discharge Diagnosis (Prints w/discharge instructions): Bradycardia- AV BLOCK. Acute Metabolic Encephalopathy secondary to Uremia. ESRD Time spent for discharge: 35 MINS Core Measure Documentation - Palliative Care Palliative Care/ Comfort Measures: Not Applicable - Core Measures Any of the following diagnoses?: none Exam - Physical Exam Narrative exam: VITAL SIGNS: Reviewed. GENERAL: The patient appears normally developed, Vital signs as documented. HEAD: No signs of head trauma. EYES: Pupils are equal. Legally blind EARS: Hearing grossly intact. MOUTH: Oropharynx is normal. NECK: No adenopathy, no JVD. CHEST: Chest with clear breath sounds bilaterally. No wheezes, rales, or rhonchi. CARDIAC: Regular rate and rhythm. S1 and S2, without murmurs, gallops, or rubs. VASCULAR: No Edema. Peripheral pulses normal and equal in all extremities. ABDOMEN: Soft, non tender and non distended. No rebound or guarding, and no masses palpated. Bowel Sounds normal. MUSCULOSKELETAL: Good range of motion of all major joints. Extremities without clubbing, cyanosis or edema. NEUROLOGIC EXAM: Alert and oriented x 3 lazy 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 ,unable to count fingers No focal sensory or strength deficits. Speech normal. Follows some commands. PSYCHIATRIC: Mood normal. SKIN: detail exam as documented in skin assessment - Constitutional Vitals: Temp Pulse Resp BP Pulse Ox 98 F 46 L 22 133/65 96 09/04/21 16:09 09/04/21 16:00 09/04/21 16:00 09/04/21 16:00 09/04/21 16:00 Plan Activity: advance as tolerated, fall precautions Diet: low fat Special Instructions: record daily BP diary Follow up with: TAMICA MAY MD [Primary Care Provider] - 3-5 Days CONNIE HUNTER MD [Staff Physician] - 7 Days BLAIR CUELLAR MD [Staff Physician] - 7 Days
[2021-09-04] MEDS: FUROSEMIDE 20 MG/2 ML INJ IV SCH (17:28)
--- NOTE | 2021-09-04 19:49 | Electrocardiograph Report ---
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
--- NOTE | 2021-09-04 20:17 | Electrocardiograph Report ---
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
--- NOTE | 2021-09-04 20:19 | Electrocardiograph Report ---
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
[2021-09-04 20:49] VITALS: BP 143/58
== END 2021-09-04 20:20 | disposition short-term general hospital (02) | DRG 280 ==
LOC: ED 16:25 → IMCU 20:38
PROVIDERS: ADMIT Internal Medicine; ATTEND Internal Medicine
PROC: 5A1D70Z Performance of Urinary Filtration, Intermittent, Less than 6 Hours Per Day (ICD-10-PCS; principal; 2021-09-01)
PROC: 5A1D70Z Performance of Urinary Filtration, Intermittent, Less than 6 Hours Per Day (ICD-10-PCS; 2021-09-02)
PROC: 5A1D70Z Performance of Urinary Filtration, Intermittent, Less than 6 Hours Per Day (ICD-10-PCS; 2021-09-03)
DX: I11.0 Hypertensive heart disease with heart failure (principal); I21.A1 Myocardial infarction type 2; G93.41 Metabolic encephalopathy; E66.2 Morbid (severe) obesity with alveolar hypoventilation; N25.81 Secondary hyperparathyroidism of renal origin; I50.9 Heart failure, unspecified; Z68.29 Body mass index [BMI] 29.0-29.9, adult; Z71.3 Dietary counseling and surveillance; E11.9 Type 2 diabetes mellitus without complications; E78.00 Pure hypercholesterolemia, unspecified; I67.2 Cerebral atherosclerosis; E88.81 Metabolic syndrome and other insulin resistance; E78.2 Mixed hyperlipidemia; D63.1 Anemia in chronic kidney disease; H54.8 Legal blindness, as defined in USA; I44.30 Unspecified atrioventricular block; Z83.3 Family history of diabetes mellitus; Z88.0 Allergy status to penicillin; Z82.49 Family history of ischemic heart disease and other diseases of the circulatory system
CPT/HCPCS: 36415; 70450; 70551; 71045; 71046; 80048; 80053; 80061; 80074; 81001; 82607; 82962; 83735; 83880; 84439; 84443; 84484; 85025; 85610; 85730; 87040; 87641; 93005; 93306; 93880; G0378; C8929; J1644; J1940